=== PATIENT | female | born 1945 | race Caucasian/White ===

== ENCOUNTER 2018-02-03 06:48 | Inpatient (IN) | payer MEDICARE, BC ==
--- NOTE | 2018-01-24 16:10 | HP ---
HISTORY AND PHYSICAL: DATE OF ADMISSION/SURGERY: 02/03/18 DATE OF OFFICE VISIT: 01/24/18 SURGEON: Madeline Rodney MD * (DICTATED BY CHRIS VIDALES) PROCEDURE: Left total hip arthroplasty. CHIEF COMPLAINT: Left hip pain. HISTORY OF PRESENT ILLNESS: Ms. 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 She has failed conservative treatment and elected to proceed with a left total hip arthroplasty. PAST MEDICAL HISTORY: Osteoporosis and giant cell arteritis. PAST SURGICAL HISTORY: Appendectomy and ovarian cyst removal. CURRENT MEDICATIONS: 1. Prednisone 9 mg daily. 2. Probiotic. 3. Calcium with vitamin D. 4. Calcium lactate. 5. Turmeric. 6. CBD oil 500 mg twice a day. ALLERGIES: No known drug allergies. FAMILY HISTORY: Cancer. SOCIAL HISTORY: She is a 72-year-old female. She lives with her . She does not smoke or use drugs. Uses alcohol rarely. REVIEW OF SYSTEMS: A complete 14-point review of systems was reviewed with the patient. It is all negative and noncontributory. She denies history of DVT, PE , hepatitis, HIV, or anesthesia problems. PHYSICAL EXAMINATION GENERAL: She is well developed, well nourished, in no acute distress. VITAL SIGNS: She stands 63 inches tall, weighs 155 pounds. Her blood pressure 118/68 and her heart rate is 70. HEENT: Normocephalic, atraumatic. NECK: Supple. No palpable lymph nodes. PULMONARY: The lungs are clear to auscultation bilaterally. CARDIO: Regular rate and rhythm. Strong S1, S2. ABDOMEN: Soft, nontender, nondistended. NEUROLOGICAL: She is alert and oriented x3. MUSCULOSKELETAL: Left lower extremity, the skin is intact. There are no open wounds or abrasions. She walks with an antalgic-type gait favoring the left hip. She has decreased internal and external rotation of the left hip. She has a 2+ dorsalis pedis pulse. Intact sensation. Her lower extremity muscle group strengths are intact at 5/5. ASSESSMENT AND PLAN: Ms. Quesada is a 72-year-old female with end-stage osteoarthritis of the left hip. She has failed conservative treatment and elected to proceed with a left total hip arthroplasty. The surgery is scheduled for 02/03/[address] Rodney discussed the risks and benefits of the surgery at today's visit and all of her questions were answered. She will follow up with Dr. Rodney 2 weeks after the surgery. CHRIS VIDALES [id number]/[facility] #: [id number] PUSHPA
[~2018-02-03 06:48] MED LIST: Buffered Lidocaine 0.9% SYRIN* 5 ML/SYR SYRINGE INTRADERM ONE; Dexamethasone IV* 4 MG/ML 1 ML (4 MG) IV SLOW PU ONE; Famotidine IV* 10 MG/ML 2 ML (20 mg) IV ONE
--- OUTSIDE RECORDS SUMMARY | 2018-02-03 06:51 | XMS REPORT | Continuity of Care Document ---
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 Payers Type Date Identification Numbers Payment Provider Subscriber Effective: Policy Number: [id number] Medicare Laura Quesada 2010 Group Name: [facility] [address] PayID: [id number] [place] [address] Effective: 2014 Policy Number: [id number] [facility] Commercial Luis Quesada Group Number: [id number] [address] [address] PayID: [id number] CARLOS ALBERTO [place] [address] Advance Directives Description No Information Available Problems Date Description Provider Status Onset: 07/10/2014 Lactose intolerance Indiana Kumar MD Active Family History Description No Information Available Social History Type Date Description Comments Sex Unknown 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 Cigarette Use Quit - Age 23 Tobacco Use Start: Unknown End: Unknown Patient is a former smoker Smoking Status Reviewed: 01/18/18 Patient is a former smoker Allergies, Adverse Reactions, Alerts Date Description Reaction Status Severity Comments 07/12/2014 Penicillin Active 12/09/2009 No Known Drug Allergy Inactive Medications Medication Date Status Form Strength Qnty SIG Indications Ordering Provider Vitamin D3 12/02 Active Capsules 2000Unit 1 by Jackson mouth Catrina every day MD Elsie Risedronate Sodium 11/29 Active Tablets 150mg 1tabs take 1 M81.0 Jackson tablet Catrina every MD Elsie month Prednisone 09/04 Active Tablets 10mg 30tab 1 qd M31.6 Jackson s Catrina Zimmerman MD Calcium Citrate 09/04 Active Tablets 950mg 1 po qd M81.0 Jackson Catrina Zimmerman MD Probiotic 07/10 Active Capsules 1 by José mouth Indiana every day MD Perlita Magnesium 07/10 Active Capsules 90cap 1 by José s mouth Indiana every day MD Perlita Sulfamethoxazole/Tri 09/04 Hx Tablets 800-160mg 14tab 1 by M31.6 Jackson methoprim s mouth 3x Catrina - a week MD Elsie 01/18 Vitamin D3 09/04 Hx Tablets 400Unit 2 po qd M81.0 Jackson Catrina Zimmerman MD 12/02 Pantoprazole Sodium 09/04 Hx Tablets 40mg 90tab [address] nathan nazario Catrina - every day MD Elsie 09/04 Physical Therapy 07/08 Hx patient M25.50 stone to Catrina - continue MD Elsie 09/04 pool use 3-5x weekly for relief of pain Methylprednisolone 06/22 Hx TBPK 4mg 1pak as dir M54.2 Jackson Catrina Zimmerman MD 07/08 Proair HFA 06/18 Hx Aerosol 108(90Bas 8.500 2 p four R06.02 Jackson e) gm times a Catrina - mcg/Act day as MD Elsie 07/08 needed- b mdi per Ach Prilosec OTC 06/11 Hx Tablets 20mg [address] mansi Fritz - every day MD Elsie 09/04 Ibuprofen 06/08 Hx Tablets 600mg 60tab take one M54.2 Jackson s tablet by Catrina - mansi Zimmerman MD 06/11 times daily as needed Cyclobenzaprine HCL 06/08 Hx Tablets 10mg 30tab take 1/2 M54.2 Jackson s to 1 Catrina - tablet MD Elsie 09/04 night at bedtime Sulfamethoxazole/Tri 07/12 Hx Tablets 800-160mg 10tab 1 tab by 595.0 steph Kumaroprim s mouth Indiana - twice a MD Perlita 06/08 day x days No Active 07/10 Hx Unknown Medications /2014 - 07/10 Multivitamin OTC 07/10 Hx Tab 1tabs 1 by José mouth Indiana - every day MD Perlita 09/04 Calcium 07/10 Hx Tablets 90tab 1 by José s mouth Indiana - every day MD Perlita 09/04 Prednisone 12/09 Hx Tablets 10mg 30tab 4tabs qam 782.1 Jackson s x 3 days Catrina - then 3 po Elsie, 07/10 qam x 3d /2014 then 2 po qam x 3d then 1 po qam x 3 d Alendronate Sodium Hx Tablets 70mg 1 by M81.0 Unknown /0000 mouth qwk - 11/29 Actemra Hx Solution 80mg/4ML M31.6 Unknown /0000 - 01/18 Immunizations CPT Code Status Date Vaccine Lot # [id number] Refused 11/29/2017 Influenza Vac, 3 Yrs & Older, Quadrivalent, [place] [id number] Refused 06/22/2016 Influenza Vac, 3 Yrs & Older, Quadrivalent, Split, [id number] Im Use Vital Signs Date Vital Result Comment 01/18/2018 2:55pm Weight 164.00 lb Heart Rate 76 /min BP Systolic 128 mmHg BP Diastolic 66 mmHg Height 63 inches 5'3" BMI (Body Mass Index) 29.0 kg/m2 11/29/2017 3:25pm Weight 159.00 lb Heart Rate 64 /min BP Systolic 120 mmHg BP Diastolic 66 mmHg Height 63 inches 5'3" BMI (Body Mass Index) 28.2 kg/m2 09/04/2016 11:51am Weight 129.00 lb Heart Rate 60 /min BP Systolic 128 mmHg BP Diastolic 64 mmHg Height 63 inches 5'3" BMI (Body Mass Index) 22.8 kg/m2 07/22/2016 3:15pm Weight 133.00 lb Heart Rate 83 /min BP Systolic 120 mmHg BP Diastolic 65 mmHg Height 63 inches 5'3" BMI (Body Mass Index) 23.6 kg/m2 07/08/2016 1:52pm Weight 136.38 lb Heart Rate 78 /min BP Systolic 101 mmHg BP Diastolic 64 mmHg Height 63 inches 5'3" BMI (Body Mass Index) 24.2 kg/m2 06/22/2016 11:19am Weight 138.00 lb Heart Rate 76 /min BP Systolic 98 mmHg BP Diastolic 60 mmHg Height 63 inches 5'3" BMI (Body Mass Index) 24.4 kg/m2 06/15/2016 3:34pm Weight 140.00 lb Heart Rate 76 /min BP Systolic 116 mmHg BP Diastolic 62 mmHg Height 63 inches 5'3" O2 Saturation Level with Exercise 98 % Walking 200 FT BMI (Body Mass Index) 24.8 kg/m2 06/08/2016 11:00am Weight 139.00 lb Heart Rate 76 /min BP Systolic 110 mmHg BP Diastolic 64 mmHg Height 63 inches 5'3" BMI (Body Mass Index) 24.6 kg/m2 08/02/2014 2:10pm Heart Rate 62 /min BP Systolic 114 mmHg BP Diastolic 63 mmHg 07/12/2014 2:02pm Heart Rate 60 /min BP Systolic 108 mmHg BP Diastolic 67 mmHg 07/10/2014 2:44pm Weight 144.00 lb Heart Rate 65 /min BP Systolic 122 mmHg BP Diastolic 72 mmHg Height 63 inches 5'3" BMI (Body Mass Index) 25.5 kg/m2 12/13/2009 11:09am Heart Rate 76 /min BP Systolic 104 mmHg BP Diastolic 60 mmHg 12/09/2009 1:40pm Body Temperature 96.8 F Weight 172.00 lb Heart Rate 72 /min BP Systolic 130 mmHg BP Diastolic 74 mmHg Results Test Date Facility Test Result H/L Range Note Laboratory test 12/01/2017 [facility] (medicare) Negative Negative finding Lipid 12/01/2017 [facility] Cholesterol 186 mg/dL 50-199 Triglycerides 112 mg/dL 30-200 HDL 73 mg/dL 35-85 1 Chol/ HDL Ratio 2.5 ratio Low 3.7-5.6 VLDL 22 mg/dL 2-29 LDL (Calc) 91 mg/dL 20-99 2 Laboratory test finding 12/01/2017 [facility] TSH 1.14 uIU/mL 0.35-4.94 Vitamin D 25 Hydroxy 28 ng/mL Low 30-100 3 Glucose 81 mg/dL 70-105 Basic (BMP) 09/04/2016 [facility] Sodium 142 mmol/L 135-146 4, 5 Potassium 4.8 mmol/L 3.5-5.2 Chloride# 102 mmol/L 97-110 6 Carbon Dioxide 30 mmol/L 24-34 Glucose 103 mg/dL 70-105 BUN 18 mg/dL 6-26 Creatinine 0.8 mg/dL 0.5-1.4 Calcium 9.2 mg/dL 8.5-10.2 Non Tg Egfr >60 >60 7 Tg Egfr >60 >60 8 Anion Gap 15 mmol/L 7-16 9 Lyme Disease By PCR - RL 07/08/2016 [facility] Lyme PCR Not Detected 10 Laboratory test finding 06/25/2016 [facility] (medicare) Negative Negative CBC With Auto Diff 06/22/2016 [facility] WBC 9.8 K/uL 4.1-11.0 RBC 3.93 M/uL Low 4.00-5.40 Hemoglobin 11.2 gm/dL Low 12.0-16.0 Hematocrit 35.0 % Low 36.0-47.0 MCV 88.9 fL 80.0-97.0 MCH 28.5 pg 27.0-32.0 MCHC 32.1 g/dL 32.0-36.0 RDW 12.9 % 11.5-14.5 PLT Count 403 K/ul High 140-400 Neutrophil 75.2 % High 35.0-75.0 Lymphocyte 10.0 % Low 16.0-52.0 Monocyte 11.3 % High 2.0-10.0 Eosinophil 1.9 % 0.0-5.0 Basophil 1.6 % 0.0-4.0 Abs Neutrophils 7.4 K/uL 2.1-8.0 Abs Lymphocytes 1.0 K/uL 0.8-5.5 Abs Monocytes 1.1 K/uL High 0.1-1.0 Abs Eosinophils 0.2 K/uL 0.0-0.5 Abs Basophils 0.2 K/uL 0.0-0.3 Comment Specimen prewarm <SEE NOTE> 11 Iron Panel 06/22/2016 [facility], Total 14 g/dL Low 50-170 Transferrin 184.0 mg/dL Low 203.0-362.0 Tibc (calc) 258 g/dL Low 261-478 % Iron Saturation 5.4 % Low 13.0-45.0 Laboratory test finding 06/22/2016 [facility] Esr 58 mm/hr High 0-20 CRP (C-Reactive) 12.21 mg/dL High 0.00-0.75 Lyme Igm/Igg AB 06/08/2016 [facility] Lyme Igm/Igg AB @ NEGATIVE (Neg) 12 -RL CBC With Auto 06/08/2016 [facility] WBC 8.9 Specimen pre 4.1-11.0 13 Diff <SEE NOTE> K/uL RBC 3.93 M/uL Low 4.00-5.40 Hemoglobin 11.9 gm/dL Low 12.0-16.0 Hematocrit 35.1 % Low 36.0-47.0 MCV 89.4 fL 80.0-97.0 MCH 30.2 pg 27.0-32.0 MCHC 33.8 g/dL 32.0-36.0 RDW 12.8 % 11.5-14.5 PLT Count 374 K/ul 140-400 Comprehensive Metabolic (CMP) 06/08/2016 [facility] Sodium 145 mmol/L 135- 146 14 Potassium 4.9 mmol/L 3.5-5.2 Chloride# 104 mmol/L 97-110 15 Carbon Dioxide 29 mmol/L 24-34 Glucose 92 mg/dL 70-105 BUN 12 mg/dL 6-26 Creatinine 0.7 mg/dL 0.5-1.4 Calcium 9.2 mg/dL 8.5-10.2 Total Protein 6.7 g/dL 6.0-8.0 Albumin 3.8 g/dL 3.6-4.9 Globulin 2.9 g/dL 2.0-3.5 A/G Ratio 1.3 Ratio 1.0-2.2 Total Bilirubin 0.4 mg/dL 0.1-1.3 Alkaline Phosphatase 95 U/L 24-140 Alt 13 U/L 3-42 Ast 20 U/L 8-42 Tg Egfr >60 >60 16 Non Tg Egfr >60 >60 17 Anion Gap 17 mmol/L High 7-16 18 Laboratory test finding 06/08/2016 [facility] Esr 45 mm/hr High 0-20 TSH 1.38 uIU/mL 0.35-4.94 Vit D,25 Hydroxy 45 ng/mL 31-100 Lipid 06/08/2016 [facility] Cholesterol 149 mg/dL 50-199 Triglycerides 44 mg/dL 30-200 HDL 61 mg/dL 35-85 19 Chol/ HDL Ratio 2.5 ratio Low 3.7-5.6 VLDL 9 mg/dL 2-29 LDL (Calc) 80 mg/dL 20-99 20 Laboratory test 06/08/2016 [facility] Hepatitis C Virus NONREACTIVE Nonreactive finding Antibody Rheumatoid Factor <10.0 IU/mL 0.0-10.0 CCP Antibody Igg Negative Negative Radha Screen With Reflex-FCMG 06/08/2016 [facility] Radha Screen NEGATIVE dsDNA IgG NEGATIVE Manual Differential 06/08/2016 [facility] Neutrophils 71 % 35-75 Band 1 % 0-11 Lymphocytes 16 % 16-52 Monocytes 9 % High 0-8 Eosinophils 3 % 0-5 Basophils 0 % 0-4 Platelet Estimate Normal Normal Abs Neutrophils# 6.3 K/ul 1.8-7.7 Abs Lymphocytes# 1.4 K/ul 1.2-4.8 Abs Monocytes# 0.8 K/ul 0.0-0.8 Abs Eosinophils# 0.3 K/ul 0.0-0.5 Abs Basophils# 0.0 K/ul 0.0-0.3 Abs BandCells# 0.1 K/ul 0.0-1.2 Iron Panel 06/08/2016 [facility] Iron, Total 22 g/dL Low 50-170 Transferrin 209.0 mg/dL 203.0-362.0 Tibc (calc) 293 g/dL 261-478 % Iron Saturation 7.5 % Low 13.0-45.0 Laboratory test finding 07/24/2014 [facility] Vit D,25 Hydroxy 30 ng/mL Low 31-100 Lipid 07/24/2014 [facility] Cholesterol 171 mg/dL 50-199 Triglycerides 57 mg/dL 30-200 HDL 67 mg/dL 35-85 21 Chol/ HDL Ratio 2.6 ratio Low 3.7-5.6 VLDL 11 mg/dL 2-29 LDL (Calc) 93 mg/dL 20-99 22 Laboratory test finding 07/24/2014 [facility] TSH 1.63 uIU/mL 0.35-4.94 Vitamin B12 287 pg/mL 180-914 Comprehensive Metabolic (CMP) 07/24/2014 [facility] Sodium 142 mmol/L 134- 142 Potassium 4.6 mmol/L 3.5-5.2 Chloride 105 mmol/L 97-109 Carbon Dioxide 31 mmol/L 24-34 Glucose 97 mg/dL 70-105 BUN 17 mg/dL 6-26 Creatinine 0.7 mg/dL 0.5-1.4 Calcium 9.2 mg/dL 8.5-10.2 Total Protein 6.7 g/dL 6.0-8.0 Albumin 4.4 g/dL 3.6-4.9 Globulin 2.3 g/dL 2.0-3.5 A/G Ratio 1.9 Ratio 1.0-2.2 Total Bilirubin 0.4 mg/dL 0.1-1.3 Alkaline Phosphatase 80 U/L 24-140 Alt 21 U/L 3-42 Ast 27 U/L 8-42 Anion Gap 11 mmol/L 6-14 Tg Egfr >60 >60 23 Non Tg Egfr >60 >60 24 CBC With Auto Diff 07/24/2014 [facility] WBC 3.9 K/uL Low 4.1-11.0 RBC 4.08 M/uL 4.00-5.40 Hemoglobin 14.5 gm/dL 12.0-16.0 Hematocrit 40.9 % 36.0-47.0 MCV 100.3 fL High 80.0-97.0 MCH 35.5 pg High 27.0-32.0 MCHC 35.4 g/dL 32.0-36.0 RDW 13.4 % 11.5-14.5 PLT Count 196 K/ul 140-400 Neutrophil 65.0 % 35.0-75.0 Lymphocyte 22.1 % 16.0-52.0 Monocyte 8.0 % 2.0-10.0 Eosinophil 4.4 % 0.0-5.0 Basophil 0.5 % 0.0-4.0 Abs Neutrophils 2.6 K/uL 2.1-8.0 Abs Lymphocytes 0.9 K/uL 0.8-5.5 Abmon 0.3 K/uL 0.1-1.0 Abs Eosinophils 0.2 K/uL 0.0-0.5 Abs Basophils 0.0 K/uL 0.0-0.3 [facility] Micro[facility] res 25 finding <SEE NOTE> CBC 07/13/2001 [facility] (Do not Use) WBC 4.4 K/ul 4.1-1 [facility] [address] [place], [place] [id number] [phone] RBC 3.96 M/ul Low 4.2-6.3 Hemoglobin 13.6 GM/dl 12.0-16.0 Hematocrit 37.8 % 37.0-51.0 MCV 95.5 FL 80-97 MCH 34.3 pg High 26.0-32.0 MCHC 35.9 g/dL 31.0-36.0 RDW 12.1 % 11.5-14.5 Platelet Count 207 K/ul 140-440 Neutrophils 60.2 % 50-70 Lymphocytes 24.9 % 20-44 Monocytes 9.8 % High 2-9 Eosinophil 4.5 % High 0-4 Basophil 0.6 % 0-2 Absolute Neutrophils 2.7 K/ul 2.05-7.63 Absolute Lymphocytes 1.1 K/ul 0.8-4.8 Absolute Monocytes 0.4 K/ul 0.1-1.0 Absolute Eosinophils 0.2 K/ul 0.1-0.5 Absolute Basophils 0.0 K/ul Low 0.1-0.3 Laboratory test 07/13/2001 [facility] (Do not Use) TSH 1.49 uIU/ml 0.50 -6.00 26 finding [facility] [place] [address] [phone] Basic (BMP) 07/13/2001 [facility] (Do not Use) Sodium 141 mmol/L 137- 145 [facility] [place] [place] [address] [phone] Potassium 4.8 mmol/L 3.6-5.0 Chloride 102 mmol/L 98-107 Carbon Dioxide 30 mmol/L 22-30 Glucose 88 mg/dL 65-105 BUN 19 mg/dL High 7-18 Creatinine, Serum 0.8 mg/dL 0.7-1.2 BUN/CR Ratio 24.1 Ratio High 12-20 Anion Gap 14 mmol/L 10-20 Calcium 9.1 mg/dL 8.7-10.5 Lipid Panel 07/13/2001 [facility] (Do not Use) Cholesterol 178 mg/dL 50 -199 [facility] [place] [address] [phone] Triglycerides 82 mg/dL 30-249 HDL Cholesterol 71 mg/dL 29-86 LDL(Calc) 91 mg/dL 20-129 Chol/HDL Ratio 2.53 27 VLDL Cholesterol 16 mg/dL 1 Per NCEP ATP III Guidelines: Results lower than 40 mg/dL are suggestive of increased risk for coronary artery disease. Results > or=to 60 mg/dL are considered a negative risk factor. 2 Per NCEP ATP III Guidelines: Normal Population <130 Patients with medical conditions: CHD/DM Optimal: <100 Borderline high: 130-159 High: 160-189 Very high: >189 3 Clinical Guidelines for recommended serum 25(OH)Vitamin D Deficient at less than 20 ng/mL Insufficient at 20 to <30 ng/mL Sufficient at 30-100 ng/mL Toxicity at greater than 100 ng/mL 4 This sample is drawn by:NB. 5 Updated reference range on new analyzer 6 Updated reference range on new analyzer 7 Concerning GFR Guidelines: Normal function or mild renal disease, if clinically at risk: >/=60 mL/min Moderately decreased: 30-59 Severely decreased: 15-29 Renal failure: <15 Glomerular Filtration Rate (GFR) is estimated based on the MDRD equation, which assumes a steady state for creatinine as recommended by the National Kidney Disease Education Program in conjunction with the National Institutes of Health and the National Kidney Foundation. Clinical conditions in which it may be necessary to measure GFR by using clearance methods include extremes of age and body size, severe malnutrition or obesity, diseases of skeletal muscle, paraplegia or quadriplegia, vegetarian diet, rapidly changing kidney function, and calculation of the dose of potentially toxic drugs that are excreted by the kidneys. 8 Concerning GFR Guidelines for Americans: Normal function or mild renal disease, if clinically at risk: >/=60 mL/min Moderately decreased: 30-59 Severely decreased: 15-29 Renal failure: <15 9 Updated reference range on new analyzer 10 Not Detected NOT DETECTED - A negative result does not rule out the presence of PCR inhibitors in the patient specimen or assay specific nucleic acid in concentrations below the level of detection by the assay. The CDC considers blood and urine samples to be suboptimal for the detection for Borrelia by PCR. Positive results do not necessarily represent active disease. INTERPRETIVE INFORMATION: Borrelia Species DNA Detection by PCR Test developed and characteristics determined by [email or web address]. See Compliance Statement B: [facility] Performed by [email or web address], [address] [place] [id number] [email or web address], Josiah Carey MD, Lab. Director Unless otherwise specified, testing performed by [facility] [place] [address] 11 Specimen prewarmed prior to testing due to a presumptive cold agglutinin. 12 A Negative serologic test for Lyme Disease indicates no serologic evidence of infection with B burgdorferi at the time this specimen was collected. A repeat specimen should be collected in 2 to 4 weeks if clinically indicated. Unless otherwise specified, testing performed by [facility] [place] [address] 13 8.9 Specimen prewarmed prior to testing due to a presumptive cold agglutinin. 14 Updated reference range on new analyzer 15 Updated reference range on new analyzer 16 Concerning GFR Guidelines for Americans: Normal function or mild renal disease, if clinically at risk: >/=60 mL/min Moderately decreased: 30-59 Severely decreased: 15-29 Renal failure: <15 17 Concerning GFR Guidelines: Normal function or mild renal disease, if clinically at risk: >/=60 mL/min Moderately decreased: 30-59 Severely decreased: 15-29 Renal failure: <15 Glomerular Filtration Rate (GFR) is estimated based on the MDRD equation, which assumes a steady state for creatinine as recommended by the National Kidney Disease Education Program in conjunction with the National Institutes of Health and the National Kidney Foundation. Clinical conditions in which it may be necessary to measure GFR by using clearance methods include extremes of age and body size, severe malnutrition or obesity, diseases of skeletal muscle, paraplegia or quadriplegia, vegetarian diet, rapidly changing kidney function, and calculation of the dose of potentially toxic drugs that are excreted by the kidneys. 18 Updated reference range on new analyzer 19 Per NCEP ATP III Guidelines: Results lower than 40 mg/dL are suggestive of increased risk for coronary artery disease. Results > or=to 60 mg/dL are considered a negative risk factor. 20 Per NCEP ATP III Guidelines: Normal Population <130 Patients with medical conditions: CHD/DM Optimal: <100 Borderline high: 130-159 High: 160-189 Very high: >189 21 Per NCEP ATP III Guidelines: Results lower than 40 mg/dL are suggestive of increased risk for coronary artery disease. Results > or=to 60 mg/dL are considered a negative risk factor. 22 Per NCEP ATP III Guidelines: Normal Population <130 Patients with medical conditions: CHD/DM Optimal: <100 Borderline high: 130-159 High: 160-189 Very high: >189 23 Concerning GFR Guidelines for Americans: Normal function or mild renal disease, if clinically at risk: >/=60 mL/min Moderately decreased: 30-59 Severely decreased: 15-29 Renal failure: <15 24 Concerning GFR Guidelines: Normal function or mild renal disease, if clinically at risk: >/=60 mL/min Moderately decreased: 30-59 Severely decreased: 15-29 Renal failure: <15 Glomerular Filtration Rate (GFR) is estimated based on the MDRD equation, which assumes a steady state for creatinine as recommended by the National Kidney Disease Education Program in conjunction with the National Institutes of Health and the National Kidney Foundation. Clinical conditions in which it may be necessary to measure GFR by using clearance methods include extremes of age and body size, severe malnutrition or obesity, diseases of skeletal muscle, paraplegia or quadriplegia, vegetarian diet, rapidly changing kidney function, and calculation of the dose of potentially toxic drugs that are excreted by the kidneys. 25 Microbiology results SOURCE URINE FINAL RESULT No growth 26 New Method as of 07/14/01 using Third Generation TSH methodolgy 27 Normal Range: Male: <4.98 Female: <4.45 Procedures Date Code Description Status 01/18/2018 61366 Electrocardiogram Complete Completed 08/31/2016 [id number] Bone Mineral Density Test Completed 06/22/2016 22584 Spirometry /PFT W/O Bronchodialator Completed 06/15/2016 12891 Measure Blood Oxygen Level Single Determination Completed 06/15/2016 60942 Electrocardiogram Complete Completed 07/13/2001 58582 Electrocardiogram Complete Completed Encounters Type Date Location Provider Dx Diagnosis Office Visit 11/29/2017 Catrina Mcallister Z00.01 Encounter for 3:15p MD Elsie general adult medical exam w abnormal findings R63.5 Abnormal weight gain M31.6 Other giant cell arteritis M16.12 Unilateral primary osteoarthritis, LEFT hip M81.0 Age-related osteoporosis w/o current pathological fracture Z12.31 Encntr screen mammogram for malignant neoplasm of breast Z12.11 Encounter for screening for malignant neoplasm of colon Z13.89 Encounter for screening for other disorder Z91.19 Patient's noncompliance w oth medical treatment and regimen N63.11 Unspecified lump in the RIGHT breast, upper outer quadrant Z68.28 Body mass index (BMI) 28.0-28.9, adult Office Visit 09/04/2016 11:30a Catirna Mcallister M31.6 Other danuta Zimmerman MD arteritis M81.0 Age-related osteoporosis w/o current pathological fracture H53.121 Transient visual loss, RIGHT eye S82.61xA Disp fx of lateral malleolus of RIGHT fibula, init D23.61 Oth benign neoplasm skin/ RIGHT upper limb, inc shoulder Office Visit 07/22/2016 3:20p Ebony Pineda PA H53.121 Transient visual loss, RIGHT eye R68.84 Jaw pain Office Visit 07/08/2016 1:40p Ebony Pineda PA Z00.00 Encntr for general adult medical exam w/o abnormal findings M25.50 Pain in unspecified joint D50.9 Iron deficiency anemia, unspecified R70.0 Elevated erythrocyte sedimentation rate R06.02 Shortness of breath Z91.19 Patient's noncompliance w oth medical treatment and regimen Office Visit 06/15/2016 3:30p Catrina Mcallister D50.9 Iron deficiency MD Elsie anemia, unspecified M25.50 Pain in unspecified joint M54.2 Cervicalgia R06.02 Shortness of breath M54.5 Low back pain Office Visit 06/08/2016 11:00a Ctarina Mcallister MD M25.552 Pain in LEFT hip Z11.59 Encounter for screening for other viral diseases M25.50 Pain in unspecified joint E78.2 Mixed hyperlipidemia R53.83 Other fatigue E55.9 Vitamin D deficiency, unspecified M54.2 Cervicalgia D64.9 Anemia, unspecified Z72.89 Other problems related to lifestyle Office Visit 08/02/2014 2:20p Indiana Shaikh MD 214.9 Lipoma Unspecified Site Office Visit 07/12/2014 1:20p Indiana Shaikh MD 595.0 Cystitis Acute Office Visit 07/10/2014 2:20p Indiana Shaikh MD 595.0 Cystitis Acute V70.0 Exam (Adult) General Medical Routine AT Health Care Facility 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 709.9 Skin & Subcutaneous Tissue Disorders Unspec Office Visit 12/13/2009 10:00a Catrina Mcallister 782.1 Rash & Other Nonspec MD Elsie Skin Eruption Office Visit 12/09/2009 1:30p Catrina Mcallister 782.1 Rash & Other Nonspec MD Elsie Skin Eruption Office Visit 07/13/2001 8:20a Sri Dobbs, 627.2 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
--- OUTSIDE RECORDS SUMMARY | 2018-02-03 06:51 | XMS REPORT | Continuity of Care Document ---
:1945 External Reference #:[id number] Author Name Naida Carty Care Team Providers Name Role Phone Catrina Paz MD Care Team Information Conciliator Unavailable Payers Type Date Identification Numbers Payment Provider Subscriber Effective: Policy Number: [id number] Medicare Laura Quesada 2010 Group Name: [facility] [address] PayID: [id number] [place] [address] Effective: 2014 Policy Number: [id number] [facility] [employer] Luis Quesada Group Number: [id number] [address] [address] PayID: [id number] CARLOS ALBERTO [place] [address] Advance Directives Description No Information Available Problems [...] 1tabs take 1 M81.0 Jackson tablet Catrina cory Zimmerman MD month Prednisone 09/04 Active Tablets 10mg 30tab 1 qd M31.6 Jackson s Catrina Zimmerman MD Calcium Citrate 09/04 Active Tablets 950mg 1 po qd M81.0 Catrina Zimmerman MD Probiotic 07/10 Active Capsules 1 by mouth [place] every day MD Perlita Magnesium 07/10 Active Capsules 90cap 1 by José s mouth [place] every day MD Perlita Sulfamethoxazole/Tri 09/04 Hx Tablets 800-160mg 14tab 1 by M31.6 al Paz s mouth 3x Catrina - a week MD Elsie 01/18 Vitamin D3 09/04 Hx Tablets 400Unit 2 po qd M81.0 Jackson Catrina - MD Elsie 12/02 Pantoprazole Sodium 09/04 Hx Tablets 40mg 90tab [address] nathan Paulinoher - every day MD Elsie 09/04 Physical Therapy 07/08 Hx patient M25.50 Jackson to Catrina - continue MD Elsie 09/04 [...] Tablets 800-160mg 10tab 1 tab by 595.0 al Kumar s mouth [place] - twice a MD Perlita 06/08 day x days No Active 07/10 Hx Unknown Medications /2014 - 07/10 Multivitamin OTC 07/10 Hx Tab 1tabs 1 by José mouth [place] - every day MD Perlita 09/04 Calcium 07/10 Hx Tablets 90tab 1 by José, s mouth [place] - every day MD Perlita 09/04 Prednisone 12/09 Hx Tablets 10mg 30tab 4tabs qam 782.1 Jackson, s x 3 days Catrina - then 3 po MD Elsie 07/10 qam x 3d /2014 then 2 po qam x 3d then 1 po qam x 3 d Alendronate Sodium Hx Tablets 70mg 1 by M81.0 Unknown /0000 mouth qwk - 11/29 Actemra Hx Solution 80mg/4ML M31.6 Unknown /0000 - 01/18 Immunizations CPT Code Status Date Vaccine Lot # [id number] Refused 11/29/2017 Influenza Vac, 3 Yrs & Older, Quadrivalent, Split, [place] Use [id number] Refused 06/22/2016 Influenza Vac, 3 Yrs & Older, Quadrivalent, Split, [id number] Im Use Vital Signs Date Vital Result [...] Result H/L Range Note Laboratory test 12/01/2017 [facility] (medicare) Negative Negative finding Lipid 12/01/2017 [facility] Cholesterol 186 mg/dL 50-199 Triglycerides 112 mg/dL 30-200 HDL 73 mg/dL 35-85 1 Chol/ HDL Ratio 2.5 ratio Low 3.7-5.6 VLDL 22 mg/dL 2-29 LDL (Calc) 91 mg/dL 20-99 2 Laboratory test finding 12/01/2017 [facility] TSH 1.14 uIU/mL 0.35-4.94 Vitamin D 25 Hydroxy 28 ng/mL Low 30-100 3 Glucose 81 mg/dL 70-105 Basic (BMP) 09/04/2016 [facility] Sodium 142 mmol/L 135-146 4, 5 Potassium [...] prewarm <SEE NOTE> 11 Iron Panel 06/22/2016 [facility] Iron, Total 14 g/dL Low 50-170 Transferrin 184.0 mg/dL Low 203.0-362.0 Tibc (calc) 258 g/dL Low 261-478 % Iron Saturation 5.4 % Low 13.0-45.0 Laboratory test finding 06/22/2016 [facility] Esr 58 mm/hr High 0-20 CRP (C-Reactive) [...] BandCells# 0.1 K/ul 0.0-1.2 Iron Panel 06/08/2016 [facility] Iron, Total 22 g/dL Low 50-170 Transferrin [...] Basophils 0.0 K/uL 0.0-0.3 Laboratory test 07/10/2014 [facility] Urine Culture Microbiology res 25 finding <SEE NOTE> CBC 07/13/2001 [facility] (Do not Use) WBC 4.4 K/ul 4.1-1 [facility] [address] [place], [place] [id number] [phone] RBC 3.96 M/ul Low 4.2-6.3 Hemoglobin 13.6 [...] TSH 1.49 uIU/ml 0.50 -6.00 26 finding [facility] [place] [address] [phone] Basic (BMP) 07/13/2001 [facility] (Do not Use) Sodium 141 mmol/L 137- 145 [facility] [place] [address] [phone] Potassium 4.8 mmol/L 3.6-5.0 Chloride 102 mmol/L 98-107 Carbon Dioxide 30 mmol/L 22-30 Glucose 88 mg/dL 65-105 BUN 19 mg/dL High 7-18 Creatinine, Serum 0.8 mg/dL 0.7-1.2 BUN/CR Ratio 24.1 Ratio High 12-20 Anion Gap 14 mmol/L 10-20 Calcium 9.1 mg/dL 8.7-10.5 Lipid Panel 07/13/2001 [facility] (Do not Use) Cholesterol 178 mg/dL 50 -199 [facility] [place] [address] [phone] Triglycerides 82 mg/dL 30-249 HDL Cholesterol 71 [...] PCR Test developed and characteristics determined by [facility]. See Compliance Statement B: [employer] Performed by [facility], [address] [place] [id number] www.[employer] Josiah Carey MD, Lab. Director Unless otherwise specified, testing performed by [facility] [place] [address] 11 Specimen prewarmed prior to testing due to a presumptive cold agglutinin. 12 A Negative serologic test for Lyme Disease indicates no serologic evidence of infection with B burgdorferi at the time this specimen was collected. A repeat specimen should be collected in 2 to 4 weeks if clinically indicated. Unless otherwise specified, testing performed by [facility] [place] [address] 13 8.9 Specimen prewarmed prior to testing [...] <4.45 Procedures Date Code Description Status 01/18/2018 58941 Electrocardiogram Complete Completed 08/31/2016 155895299 Bone Mineral Density Test Completed 06/22/2016 10391 Spirometry /PFT W/O Bronchodialator Completed 06/15/2016 15586 Measure Blood Oxygen Level Single Determination Completed 06/15/2016 19903 Electrocardiogram Complete Completed 07/13/2001 85446 Electrocardiogram Complete Completed Encounters Type Date Location [...] (BMI) 28.0-28.9, adult Office Visit 09/04/2016 11:30a Catrina Mcallister 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 Plan of Treatment Future Appointment(s):05/30/2018 8:30 am - Catrina Paz MD at [facility]/18 - Catrina Paz MDZ01.818 Encounter for other preprocedural ltdwavwriasI00.12 Unilateral primary osteoarthritis, LEFT hipM31.6 Other giant cell yshulfumaB13.0 Age-related osteoporosis without current pathological vngnmrW32.11 Unspecified lump in the RIGHT breast, upper outer kejsdnryV02.19 Patient's noncompliance with other medical treatment and regZ79.52 senior living ( current) use of systemic rzxjhachB30.29 Body mass index (BMI) 29.0-29.9, adultAllComments:> 45 MIN SPENT IN FACE TO FACE TIME > 50% OF WHICH WAS ON 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
--- OUTSIDE RECORDS SUMMARY | 2018-02-03 06:51 | XMS REPORT | Continuity of Care Document ---
:1945 External Reference #:[id number] Author Name Christianyamileth Mian Care Team Providers Name Role Phone Catrina Paz MD Primary Care Physician Unavailable Payers Type Date Identification Numbers Payment Provider Subscriber Policy Number: [id number] Medicare Laura Quesada PayID: [id number] [address] [place] [address] Policy Number: [id number] [facility] Luis Quesada PayID: [id number] [address] [address] [place] [address] Advance Directives Description No Information Available Problems Date Description Provider Status Onset: 12/10/2017 Localized, primary osteoarthritis of the Madeline Rodney M.D. Active pelvic region and thigh Family History Date Family Member(s) Problem(s) Comments General Heart Disease mother General Cancer father Social History Type Date Description Comments Sex Unknown Lives With Spouse ETOH Use Occasionally consumes alcohol Tobacco Use Start: Unknown End: Patient is a former smoker quit 48 years ago Unknown Smoking Status Reviewed: 01/24/18 Patient is a former smoker quit 48 years ago Allergies, Adverse Reactions, Alerts Description No Known Drug Allergies Medications Medication Date Status Form Strength Qnty SIG Indications Ordering Provider Prednisone Active Tablets 5mg 1 by Unknown 000 mouth every day Probiotic 0 Active Capsules 1 by Unknown 000 mouth every day Calcium 500+D3 Active Tablets 500-400mg-U 1 tab by Unknown 000 nit mouth twice a day Alendronate Active Tablets 70mg take 1 Unknown Sodium 000 tablet by mouth every week Calcium 0 Active Unknown Lactate 000 Tumeric Forte 0 Active Unknown 000 CBD Oil Active 500mg one gtt Unknown 000 po bid Medications Administered in Office Medication Date Status Form Strength Qnty SIG Indications Ordering Provider Depomedrol Administered Injection Madeline 40MG Arturo Rodney M.D. Immunizations Description No Information Available Vital Signs Date Vital Result Comment 01/24/2018 10:02am Height 63 inches 5'3" Weight 155.00 lb Heart Rate 70 /min BP Systolic 118 mmHg BP Diastolic 68 mmHg Respiratory Rate 18 /min Body Temperature 98.0 F Pain Level 8 BMI (Body Mass Index) 27.5 kg/m2 12/27/2017 11:05am Height 63 inches 5'3" Weight 155.00 lb Heart Rate 68 /min BP Systolic 118 mmHg BP Diastolic 68 mmHg Body Temperature 97.6 F Pain Level 5 BMI (Body Mass Index) 27.5 kg/m2 12/10/2017 10:44am Height 63 inches 5'3" Weight 155.00 lb BP Systolic 107 mmHg BP Diastolic 63 mmHg Respiratory Rate 16 /min Pain Level 5 BMI (Body Mass Index) 27.5 kg/m2 09/01/2017 12:05pm Height 63 inches 5'3" Weight 154.50 lb Heart Rate 60 /min BP Systolic Sitting 122 mmHg BP Diastolic Sitting 78 mmHg Respiratory Rate 16 /min Body Temperature 97.0 F BMI (Body Mass Index) 27.4 kg/m2 Results Description No Information Available Procedures Date Code Description Status 12/10/2017 Inj/Aspir Major JT Or Bursa W/ US Completed Encounters Type Date Location Provider Dx Diagnosis Office Visit 12/27/2017 [facility] Madeline Rodney, M25.552 Pain in left hip 10:30a [facility] M16.12 Unilateral primary osteoarthritis, left hip Office Visit 12/10/2017 10:45a [facility] Madeline Rodney M25.552 Pain in left Of Diana.Jimmy Chatterjee hip M16.12 Unilateral primary osteoarthritis, left hip Office Visit 09/01/2017 11:45a [facility] Madeline Rodney M25.552 Pain in left Of C.M.Heather RiveraDBuddy hip M16.12 Unilateral primary osteoarthritis, left hip Plan of Treatment Future Appointment(s):02/09/2018 2:15 pm - Madeline Rodney M.D. at [facility]02/03/2018 11:30 am - Wm Murguia PA-C at [facility].02/03/2018 11:30 am - CHRIS Mercado at [facility].02/03/2018 11:30 am - Madeline Rodney M.D. at [facility]01/24/2018 - Madeline Rodney M.D.M25.552 Pain in left hipFollow up:Follow up: 2 weeks after aimckztA18.12 Unilateral primary osteoarthritis, left hip
[2018-02-03] MEDS ORDERED: Dexamethasone IV* 4 MG/ML 1 ML (4 MG) ONE (07:08)
[2018-02-03] MEDS ORDERED: ceFAZolin 2 GM PREMIX in ORs 2 GM/50 ML BAG IVPB ONE (07:08)
[2018-02-03] MEDS ORDERED: Famotidine IV* 10 MG/ML 2 ML (20 mg) ONE (07:08)
[2018-02-03] MEDS ORDERED: Bupivacaine 0.5% PF 10 ML VIAL INJ ONE (07:38)
[2018-02-03] MEDS ORDERED: Clindamycin 900 MG/D5W BAG(*) 900 MG/50 ML BAG IVPB ONE (08:05)
[2018-02-03] MEDS ORDERED: fentaNYL* 50 MCG/ML 2 ML VIAL (100 MCG VIAL) ONE ×2 (08:27→12:49)
[2018-02-03] MEDS ORDERED: Midazolam* 1 MG/ML 2 ML VIAL (2 MG) ONE (08:28)
[2018-02-03] MEDS ORDERED: Propofol* 10 MG/ML 20 ML BTL ONE (10:25)
[2018-02-03] MEDS ORDERED: Bupivacaine-MPF SPINAL* 7.5 MG/ML - 2ML AMP ONE (10:25)
[2018-02-03] MEDS ORDERED: Lidocaine 2% PF * 5 ML VIAL ONE (10:26)
[2018-02-03] MEDS ORDERED: Ketorolac INJ* 30 MG/ML 1 ML VIAL IV PRN (10:29)
[2018-02-03] MEDS ORDERED: Morphine VIAL* 4 MG/ML VIAL (1 ml vial) IV PRN ×2 (10:29→12:00)
[2018-02-03] MEDS ORDERED: oxyCODONE TAB* 5 MG TAB PO PRN (10:29)
[2018-02-03] MEDS ORDERED: Acetaminophen IV 1GM/100ML * 1,000 MG/100 ML VIAL IVPB ONE (10:29)
[2018-02-03] MEDS ORDERED: Ondansetron INJ* 2 MG/ML VIAL IV PRN ×2 (10:29→12:00)
[2018-02-03] MEDS ORDERED: Naloxone* 0.4 MG/ML 1 ML VIAL IV PRN (10:29)
[2018-02-03] MEDS ORDERED: fentaNYL* 50 MCG/ML 2 ML VIAL (100 MCG VIAL) IV PRN (10:29)
[2018-02-03] MEDS ORDERED: Phenylephrine INJ* 10 MG/ML 1 ML VIAL (10 MG) ONE (10:36)
[2018-02-03] MEDS ORDERED: EPHEDrine (Pressors)* 50 MG/ML VIAL ONE (11:32)
[2018-02-03] MEDS ORDERED: Polyethylene Glycol 3350* 17 GM PACKET PO PRN (12:00)
[2018-02-03] MEDS ORDERED: Bisacodyl SUPP* 10 MG SUPP PR PRN (12:00)
[2018-02-03] MEDS ORDERED: Cyclobenzaprine TAB* 10 MG PO PRN (12:00)
[2018-02-03] MEDS ORDERED: diPHENhydraMINE IV* 50 MG/ML 1 ml VIAL (BENADRYL) IV PRN (12:00)
[2018-02-03] MEDS ORDERED: oxyCODONE/Acetamin 5/325 MG* TAB PO PRN ×2 (12:00)
[2018-02-03] MEDS ORDERED: Magnesium Hydroxide LIQ* 30 ML UDC PO PRN (12:00)
[2018-02-03] MEDS ORDERED: Ketorolac INJ* 30 MG/ML 1 ML VIAL ONE (12:44)
[2018-02-03] MEDS: Acetaminophen TAB* 325 MG PO PRN ×2 (15:43→21:57)
[2018-02-03] MEDS: ceFAZolin 1 GM ADVAN(*) 1 GM in NS 0.9% 50 ML* 50 ML IVPB SCH ×2 (15:53→23:57)
--- NOTE | 2018-02-03 16:47 | PN ---
Progress Note - Progress Note Date of Service: 02/03/18 SOAP: Pt is stating pain is well controlled. She was up with PT and felt a dizzy spell earlier. +df/pf, calf is soft and non tender. 2+ DP pulse Vital Signs Temp 97.6 F 02/03/18 15:45 Pulse 76 02/03/18 15:45 Resp 17 02/03/18 15:45 BP 100/49 02/03/18 15:45 Pulse Ox 99 02/03/18 16:00 Intake & Output 02/02/18 02/03/18 02/03/18 18:59 06:59 18:59 Intake Total 2415 Output Total 800 Balance 1615 Weight 154 lb 12.8 oz Intake: IV Fluids 2000 LR 2000 Medicated IV 55 Cefazolin 55 Oral 360 Output: Fuentes 200 Estimated Blood Loss 600 Pt will have a bolus of LR today to help with soft blood pressure. Will continue to monitor.
[2018-02-03] MEDS ORDERED: Warfarin TAB(*) 6 MG PO ONE (17:00)
[2018-02-03] MEDS: Docusate CAP* 100 MG PO SCH (20:58)
[2018-02-03] MEDS: Magnesium Hydroxide LIQ* 30 ML UDC PO SCH (20:59)
[2018-02-04] MEDS: oxyCODONE TAB* 5 MG TAB PO PRN ×2 (01:08→08:36)
[2018-02-04 05:34] LABS: Hematocrit 29 % (35-47); Hemoglobin 9.5 g/dl (12.0-16.0); Mean Platelet Volume 7.9 fL (7.4-10.4); Platelet Count 275 10^3/ul (150-450)
[2018-02-04 05:39] LABS: INR 1.01 (0.77-1.02)
[2018-02-04 05:53] LABS: EGFR Non-African American 96.4 (>60)
--- NOTE | 2018-02-04 07:02 | PN ---
Progress Note - Progress Note Date of Service: 02/04/18 SOAP: Subjective: Pt. is alert, nad. Some dizziness with standing yesterday. Objective: Vital Signs: Temp Pulse Resp BP Pulse Ox 98.4 F 69 16 104/51 96 02/04/18 04:31 02/04/18 04:31 02/04/18 06:30 02/04/18 04:31 02/04/18 04:31 Laboratory Results - last 24 hr 02/04/18 02/04/18 02/04/18 05:01 05:01 05:01 Hgb 9.5 L Hct 29 L Plt Count 275 MPV 7.9 INR (Anticoag Therapy) 1.01 Sodium 140 Potassium 3.8 Chloride 107 Carbon Dioxide 28 Anion Gap 5 BUN 12 Creatinine 0.61 Est GFR ( Amer) 116.7 Est GFR (Non-Af Amer) 96.4 BUN/Creatinine Ratio 19.7 Glucose 93 Calcium 8.3 L LLE - dressing c/d/i. thigh soft, distal +df/pf, full sens lt, 2+ dp pulse. Assessment: 72 yo F pod 1 s/p LTHA Plan: wbat lle with post hip precautions pt/ot will restart home dose of 7mg prednisone daily plan lovenox x 30 days for dvt proph
[2018-02-04] MEDS ORDERED: predniSONE TAB* 5 MG ONE (07:50)
[2018-02-04] MEDS ORDERED: predniSONE TAB* 1 MG ONE (07:50)
[2018-02-04] MEDS: ceFAZolin 1 GM ADVAN(*) 1 GM in NS 0.9% 50 ML* 50 ML IVPB SCH (07:51)
[2018-02-04] MEDS: predniSONE TAB* 5 MG PO SCH (07:53)
[2018-02-04] MEDS: predniSONE TAB* 1 MG PO SCH (07:53)
[2018-02-04] MEDS: Magnesium Hydroxide LIQ* 30 ML UDC PO SCH ×2 (07:54→21:01)
[2018-02-04] MEDS: Vitamin THERAPEUTIC TAB PO SCH (07:59)
[2018-02-04] MEDS: Docusate CAP* 100 MG PO SCH ×2 (07:59→20:56)
[2018-02-04] MEDS: Enoxaparin(*) 40 MG/0.4 ML SYR SUBCUT SCH (12:53)
[2018-02-04] MEDS ORDERED: HYDROcodone/ACETAMIN 5-325 MG* 1 TAB PO PRN ×2 (13:39→13:40)
--- NOTE | 2018-02-04 14:34 | OP ---
OPERATIVE NOTE: DATE OF OPERATION: 02/03/18 DATE OF : 45 SURGEON: Madeline Rodney MD PRODUCT MGR: CHRIS Cobb Mr. Murguia did help throughout the procedure with preparation of the leg, wound retraction, manipulat ion of the hip, and wound closure. ANESTHESIOLOGIST: Devon Mcguire MD ANESTHESIA: Spinal. PRE-OP DIAGNOSIS: Severe end-stage degenerative osteoarthritis of the left hip joint with subchondra l cyst formation in the acetabulum. POST-OP DIAGNOSIS: Severe end-stage degenerative osteoarthritis of the left hip joint with subchondr al cyst formation in the acetabulum. OPERATIVE PROCEDURE: Left total hip arthroplasty with acetabular subchondral cyst bone graft using f emoral head allograft. ESTIMATED BLOOD LOSS: 200 cc. COMPLICATIONS: None. SPECIMEN: Femoral head and acetabular reaming sent to Pathology. HARDWARE USED: Uncemented Phillip total hip arthroplasty hardware. For the cup, a Tritanium cluster hole shell 52D, two 20-mm screws were used, Trident X3 zero- degree 32D polyethylene liner, Accolade II size 6 with a 127-degree neck, Biolox delta ceramic V40 femoral head 32-4. BRIEF HISTORY/INDICATION: Ms. Quesada is a 72-year-old female with increasingly severe left hip lamberto n over the last 6 months. Radiographs showed [id number] arthritis with subchondral cyst formation. She failed conservative treatment with antiinflammatories, pain medication, intraarticular injectio n, and physical therapy. Due to continued pain and decreased quality of life, she elected to undergo a left total hip arthroplasty. Informed consent was obtained from the patient. She understood the risks of surgery included, but were not limited to, bleeding, infection, damage to nearby structures, continued pain, need for further surgery, intraoperative fracture, nerve palsy, hardware failure or loosening, dislocation, leg-length discrepancy, stroke, heart attack, blood clot, and . She wish ed to proceed. INTRAOPERATIVE FINDINGS: Intraoperatively, the patient was noted to have severe end-stage arthritis with complete loss of cartilage in the acetabulum and femoral head. There was significant osteopenia of the patient's bone. She was noted to have subchondral cyst in the anterosuperior weightbearing d ome of the acetabulum that was approximately 1 cm in diameter. DESCRIPTION OF PROCEDURE: Ms. Quesada was identified in the preanesthesia unit. Her left lower extr emity was marked as the correct operative side. Informed consent was signed and placed in the chart. The patient was taken to the operating room and placed under spinal anesthesia. A Fuentes catheter w as placed. She was placed in the right lateral decubitus position on the peg board. All bony promin ences were well padded. Left lower extremity was prepped and draped in the usual sterile fashion. P reop time-out was made to correctly identify the patient, side, and site. Appropriate perioperative antibiotics were given within 1 hour of incision. A posterior hip incision was made and carried down to the lateral fascial layer. The lateral fascial layer was incised in line with the skin incision. Charnley retractor was placed. The piriformis and conjoint tendons were identified off the posterolateral femur and tagged with #5 Ethibond. Next, el ectrocautery was used to make a standard posterolateral capsular flap and this was also tagged with # 5 Ethibond. The patient's hip was carefully dislocated. Lesser trochanter to center of femoral head measured 60 mm. Oscillating saw was used to make the appropriate femoral neck cut. The femoral hea d was carefully removed. Allograft was obtained from the femoral head to use for bone grafting of th e subchondral cyst that was seen on preop x-rays. After appropriate placement of retractors, the acetabulum was well visualized. Long-handle knife was used to sharply remove any remaining labrum from the acetabular rim. The acetabulum was sequentially reamed up to a size 51. The 51 reamer had excellent fit and stability. A 51 trial also had excelle nt fit and stability. A bleeding subchondral bone bed was obtained. Final implant chosen was a Trit anium cluster hole shell 52D. This was impacted into the acetabulum without complication. There was satisfactory abduction angle, anteversion, and stability. Two 20-mm screws were placed in the supero posterior quadrant for extra stability. A Trident X3 32D 0-degree liner was chosen as the final impla nt. This was impacted into the acetabulum without difficulty. Stability of the liner was checked an d rechecked and noted to be stable. Attention was next turned to preparation of the femoral canal. A canal finder was used to enter the proximal femur. The femur was sequentially broached up to a size 6. The size 6 broach had good fit with appropriate anteversion. A 127 neck trial with a 32+0 head t rial was chosen. Lesser trochanter to center of the femoral head measured 65 mm. Therefore, a -4 he ad was chosen. Lesser trochanter to center of the femoral head measured 61 mm. The hip was reduced and taken through a range of motion. The hip was stable in all positions. There was good soft tissu e tension and appropriate leg lengths. All trials were carefully removed. Final implant chosen was an Accolade II size 6 with a 127-degree neck. This was impacted into the femoral canal without difficulty. The stem was stable with appropr iate anteversion. A 32-4 Biolox delta ceramic V40 femoral head was impacted down to the femoral neck . Lesser trochanter to center of the femoral head measured 61 mm. The hip was reduced and taken thr ough a range of motion. The hip was stable in all positions. There was good soft tissue tension and appropriate leg lengths. The previously tagged tendons and capsule were reapproximated to the poste rolateral femur through 2 trochanteric drill holes. The wound was copiously irrigated with sterile saline. The lateral fascial layer was closed using in terrupted #1 Vicryl. The rest of the incision was closed in a layered fashion using 0 and 2-0 Vicryl . Skin was closed using running 3-0 Monocryl and Dermabond. Sterile Adaptic, 4x4s, and paper tape w ere used to cover the incision. The patient's anesthesia was reversed without difficulty. She was taken to the PACU in stable condit ion. Intended weightbearing will be weightbearing as tolerated with posterior hip precautions. Inte nded DVT prophylaxis will be Lovenox. [id number]/[facility] #: [id number]
[2018-02-04] MEDS: Acetaminophen TAB* 325 MG PO PRN ×2 (15:00→20:55)
[2018-02-04] MEDS ORDERED: traMADol TAB* 50 MG PO PRN (20:09)
[2018-02-05] MEDS: Acetaminophen TAB* 325 MG PO PRN ×3 (04:21→18:38)
[2018-02-05 06:01] LABS: Hematocrit 29 % (35-47); Hemoglobin 9.9 g/dl (12.0-16.0); Platelet Count 283 10^3/ul (150-450)
[2018-02-05 06:16] LABS: INR 1.02 (0.77-1.02)
[2018-02-05] MEDS: predniSONE TAB* 1 MG PO SCH (08:26)
[2018-02-05] MEDS: predniSONE TAB* 5 MG PO SCH (08:27)
[2018-02-05] MEDS: Docusate CAP* 100 MG PO SCH ×2 (08:27→19:46)
[2018-02-05] MEDS: Vitamin THERAPEUTIC TAB PO SCH (08:28)
[2018-02-05] MEDS: Magnesium Hydroxide LIQ* 30 ML UDC PO SCH ×2 (08:29→19:46)
[2018-02-05] MEDS: Enoxaparin(*) 40 MG/0.4 ML SYR SUBCUT SCH (11:43)
[2018-02-05] MEDS ORDERED: Scopolamine 1.5 mg* PATCH TRANSDERM SCH (12:30)
--- NOTE | 2018-02-05 12:34 | PN ---
Progress Note - Progress Note Date of Service: 02/05/18 SOAP: Subjective: POD #2 Left JULIAN. Doing well. Did not tolerate Percocet or [place], switched to Tramadol. Ambulating well. Denies CP/SOB, f/c, n/v. Objective: Vital Signs: Temp Pulse Resp BP Pulse Ox 98.4 F 75 17 101/48 96 02/05/18 11:16 02/05/18 11:16 02/05/18 11:16 02/05/18 11:16 02/05/18 11:16 Gen: A&Ox3, NAD at rest Left hip: Incision C/D/I, mild ecchymosis, no erythema. +f/e at knee, ankle and MTPs. N/V intact Labs: Laboratory Results - last 24 hr 18 02/05/18 05:24 05:24 Hgb 9.9 L Hct 29 L Plt Count 283 MPV 8.0 INR (Anticoag Therapy) 1.02 Assessment: POD #2 Left JULIAN Plan: Probable d/c tomorrow if pain still controlled with medication change PT/OT with posterior hip precautions Lovenox for DVT ppx
[2018-02-05] MEDS ORDERED: Scopolamine 1.5 mg* PATCH ONE (12:35)
[2018-02-06] MEDS: Acetaminophen TAB* 325 MG PO PRN ×3 (00:37→13:19)
[2018-02-06 05:44] LABS: Hematocrit 29 % (35-47); Hemoglobin 9.7 g/dl (12.0-16.0); Mean Platelet Volume 7.9 fL (7.4-10.4); Platelet Count 289 10^3/ul (150-450)
[2018-02-06 05:47] LABS: INR 0.98 (0.77-1.02)
[2018-02-06 08:10] VITALS: BP 110/44
[2018-02-06] MEDS: Docusate CAP* 100 MG PO SCH (08:26)
[2018-02-06] MEDS: Magnesium Hydroxide LIQ* 30 ML UDC PO SCH (08:26)
[2018-02-06] MEDS: Vitamin THERAPEUTIC TAB PO SCH (08:26)
[2018-02-06] MEDS: predniSONE TAB* 5 MG PO SCH (08:26)
[2018-02-06] MEDS: predniSONE TAB* 1 MG PO SCH (08:26)
--- NOTE | 2018-02-06 08:34 | PN ---
Progress Note - Progress Note Date of Service: 02/06/18 SOAP: Subjective: POD #3 Left JULIAN. Doing well, had slight episode of nausea but resolved. Pain controlled. Denies CP/SOB, f/c Objective: Vitals: Temp Pulse Resp BP Pulse Ox 98.3 F 69 17 110/44 100 12//18 07:35 12//18 07:35 1218 07:35 02/06/18 07:35 02/06/18 07:35 Gen: A&Ox3, NAD at rest laying in bed Left hip: Dressing C/D/I, thigh soft, min tenderness. +f/e at ankle and MTPs, N/ V intact Labs: Laboratory Results - last 24 hr 12//18 //18 05:10 05:10 Hgb 9.7 L Hct 29 L Plt Count 289 MPV 7.9 INR (Anticoag Therapy) 0.98 Assessment: POD #3 Left JULIAN Plan: D/C home today Eliquis 2.5mg BID for DVT ppx Cont PT, posterior hip precautions F/U with Dr. Rodney 10-14 days
--- NOTE | 2018-02-06 10:47 | DS ---
DISCHARGE SUMMARY: DATE OF ADMISSION: 02/03/18. DATE OF DISCHARGE: 02/06/18. PROVIDER: Madeline Rodney M.D.* (DICTATED BY CHRIS COLLADO) ADMITTING DIAGNOSIS: Severe end-stage osteoarthritis of the left hip. DISCHARGE DIAGNOSIS: Severe end-stage osteoarthritis of the left hip, status post left total hip arthroplasty. SECONDARY DIAGNOSIS: Osteoporosis and giant cell arteritis. HISTORY OF PRESENT ILLNESS: Ms. Quesada is a 72-year-old female, who has had ongoing troubles with the left hip secondary to end-stage osteoarthritis. She elected to proceed with a left total hip arthroplasty after failing conservative treatment. HOSPITAL COURSE: On 02/03/18, the patient was admitted to [facility] and underwent a successful left total hip arthroplasty by Dr. Rodney. She recovered briefly in the postanesthesia care unit and was transferred to the short-stay surgical unit in stable condition. The patient's pain was well controlled with oral and IV pain medication on the day of surgery; however, she did have some dizziness and was given a bolus of saline to increase her blood pressure as she had slight hypotension at 100/49. On postop day 1, the patient was feeling slightly better, although did report quite a bit of nausea. Percocet was discontinued and the patient was switched to Glendo and did have some good pain relief. She still reported quite a bit of nausea. She had an acute blood loss anemia with an H and H of 9.5 and 29. She was given Lovenox at this time for DVT prophylaxis. Her Fuentes catheter was removed and she was able to void without difficulty. On postop day 2, the patient continued to have some dizziness and nausea. The Glendo was then switched to tramadol which the patient tolerated much better. She still reported some slight dizziness, however, that resolved dizziness with positional changes; however, that resolved with waiting. The patient was able to participate with physical therapy and was able to ambulate a significant distance with a rolling walker. H and H was stable at 9.9 and 29. She again received Lovenox for DVT prophylaxis. On postop day 3, the patient seemed more confident and ready for discharge. H and H was 9.7 and 29. She was able to participate with physical therapy again. Throughout her hospital course, the patient's vital signs remained stable. She had some slight hypotension, but was normotensive and afebrile at the time of discharge. DISCHARGE DISPOSITION: Home. DISCHARGE CONDITION: Stable. DISCHARGE MEDICATIONS: The patient will use: 1. Tramadol 50 mg one tab p.o. q.6 hours p.r.n. pain. 2. Tylenol 650 mg p.o. q.6 hours to alternate with the tramadol p.r.n. pain. 3. She will use Colace 100 mg p.o. b.i.d. p.r.n. constipation. 4. Eliquis 2.5 mg p.o. b.i.d. for DVT prophylaxis. The patient will resume her home medications of: 1. Prednisone 7 mg p.o. q.a.m. 2. Turmeric 150 mg p.o. t.i.d. 3. Lescol 1 tab p.o. t.i.d. 4. Probiotic supplement 1 tab p.o. q.a.m. 5. Enzocor 1 tab p.o. t.i.d. 6. Dramamine 2 tabs p.o. t.i.d. 7. CBD 500 mL p.o. b.i.d. 8. Cataplex D 800 units p.o. t.i.d. 9. Cataplex B 2 tabs p.o. t.i.d. 10. Calcium lactate 2 tabs p.o. t.i.d. 11. Boswellia penny extract 1 tab p.o. t.i.d. 12. Andrographis 2 tabs p.o. t.i.d. DISCHARGE INSTRUCTIONS: The patient will be weightbearing as tolerated with the use of the rolling walker. She will have [facility] for wound checks and home physical therapy. She will continue with her posterior hip precautions. She will shower normally and wash the incision with soap and water , and apply dry dressing as needed. She is understanding not to submerge the incision in a bathtub, hot tub or swimming pool. She will call the office with any problems or concerns. She is understanding to go directly to the emergency room with any chest pain, shortness of breath, fever greater than 101.5, calf pain or swelling. CHRIS COLLADO [id number]/[facility] #: [id number] PUSHPA
[2018-02-06] MEDS: Enoxaparin(*) 40 MG/0.4 ML SYR SUBCUT SCH (11:08)
== END 2018-02-06 13:58 | disposition home health service (06) | DRG 470 ==
LOC: AA 06:48 → SSU 14:18
PROVIDERS: ADMIT Orthopaedic Surgery Adult Reconstructive Orthopaedic Surgery; ATTEND Orthopaedic Surgery Adult Reconstructive Orthopaedic Surgery
PROC: 0QU507Z Supplement Left Acetabulum with Autologous Tissue Substitute, Open Approach (ICD-10-PCS; 2018-02-03)
PROC: 0SRB02A Replacement of Left Hip Joint with Metal on Polyethylene Synthetic Substitute, Uncemented, Open Approach (ICD-10-PCS; principal; 2018-02-03 09:00)
DX: M16.12 Unilateral primary osteoarthritis, left hip (principal); D62 Acute posthemorrhagic anemia; M31.6 Other giant cell arteritis; M81.0 Age-related osteoporosis without current pathological fracture; M85.48 Solitary bone cyst, other site; M85.862 Other specified disorders of bone density and structure, left lower leg; Z79.52 Long term (current) use of systemic steroids; Z79.899 Other long term (current) drug therapy; Z80.9 Family history of malignant neoplasm, unspecified
CPT/HCPCS: 36415; 80048; 85014; 85018; 85049; 85610; 88304; 88311; A9270-GY; G8978-GP-CL; G8978-GP-CM; G8979-GP-CI; G8987-GO-CJ; G8988-GO-CJ; G8989-GO-CJ; J0690; J1100; J1650; J1885; J2250; J2405; J2704; J3010; J7512

== ENCOUNTER 2018-11-29 10:27 | Inpatient (IN) | payer MEDICARE, BC ==
--- NOTE | 2018-11-21 18:16 | HP ---
PREOPERATIVE HISTORY AND PHYSICAL: DATE OF ADMISSION/SURGERY: 11/29/18 DATE OF OFFICE VISIT: 11/21/18 ATTENDING PHYSICIAN: Dr. Madeline Rodney.* (DICTATED BY CHRIS BARBOSA) SURGERY SCHEDULED: Right total knee arthroplasty. CHIEF COMPLAINT: Right knee pain. HISTORY OF PRESENT ILLNESS: Ms. Quesada is a 72-year-old female with right knee pain and feelings of instability with valgus deformity. She has sharp pain along the medial and lateral joint line of the right knee. She uses a cane to ambulate. She has tried water therapy, physical therapy, anti- inflammatories, pain medication, and intraarticular cortisone injection without relief of her pain. She would like to proceed with right total knee arthroplasty and is scheduled 11/29/18. PAST MEDICAL HISTORY: Significant for: 1. Osteoarthritis. 2. Giant cell arteritis. 3. Temporal arteritis. 4. History of anemia from NSAID use, which is now resolved. 7. Fractured left ankle, treated conservatively. PAST SURGICAL HISTORY: She has had left total hip arthroplasty and ovarian cyst excision. CURRENT MEDICATIONS: 1. Prednisone 7 mg p.o. daily. 2. Probiotic pill 1 daily. 3. Calcium tablet daily. 4. Vitamin D supplement daily. 5. Tylenol 650 mg in the a.m. and Tylenol PM q.h.s. ALLERGIES: No known drug allergies, but she is sensitive to narcotics which all cause dizziness and GI upset. FAMILY HISTORY: Mom with a history of congestive heart failure. Father with a history of lung cancer. SOCIAL HISTORY: She lives with her . She denies use of tobacco or recreational drugs. She minimally uses alcohol. REVIEW OF SYSTEMS: Positive for bilateral knee pain, right greater than left. History of easy bleeding and bruising. She denies recent recent loss of consciousness, lightheadedness, dizziness, shortness of breath, chest pain or palpitations, gastrointestinal or genitourinary discomfort. PHYSICAL EXAMINATION GENERAL: She is alert and oriented x3, in no acute distress. VITAL SIGNS: She is 64 inches tall, weight 157. Pulse 80, BP 138/72, temperature 97.6. HEENT: PERRLA. LUNGS: Clear to auscultation without wheeze. HEART: Regular rate and rhythm. No murmur. ABDOMEN: Nontender, nondistended. Normoactive bowel sounds x4. LOWER EXTREMITIES: The right knee shows no open lesions or excoriations. The motion is limited from 10 degrees to 110 degrees. She has a moderate to severe valgus deformity. There is some MCL laxity, but there is an end point with varus/valgus stress test. She has significant patellofemoral crepitus. She has active dorsiflexion of the ankle. She has full sensation and has a 2+ dorsalis pedis pulse. STUDIES: Plain films of the right knee show severe end-stage degenerative osteoarthritis with lateral [id number] contact, osteophyte formation, and subchondral sclerosis. IMPRESSION AND PLAN: Advanced osteoarthritis of the right knee with valgus deformity. She has failed conservative management and would like to proceed with right total knee arthroplasty scheduled for 11/29/18. Risks and benefits of the procedure are fully discussed by Dr. Rodney today 11/21/18. She elects to proceed. She will follow up in 10 to 14 days postoperatively. CHRIS BARBOSA [id number]/[facility] #: [id number] PUSHPA
[~2018-11-29 10:27] MED LIST changes: -Buffered Lidocaine 0.9% SYRIN* 5 ML/SYR SYRINGE INTRADERM ONE; +Buffered Lidocaine 1% SYRIN* 1 ML/SYRINGE INTRADERM ONE; +Gabapentin CAP(*) 300 MG PO ONE; +Lactated Ringers 1000 ML Bag* 1,000 ML IV SCH; +Tranexamic Acid 1,000 MG in NS 0.9% 50 ML* (outpatient use) IV SCH; +celeCOXIB CAP* 200 MG PO ONE
--- OUTSIDE RECORDS SUMMARY | 2018-11-29 10:33 | XMS REPORT | Continuity of Care Document ---
:1945 External Reference #:[id number] Author Name Catrina Paz MD Address [address] [place] [id number] Care Team Providers Name Role Phone Hannah Jones [place] Care Team Information [employer] Employee [phone] [facility] Radiology Care Team Information [employer] Employee Leida Cordon MD Care Team Information [employer] Employee [phone] Problems Active Problems Provider Date Giant cell arteritis Mor Glynn PA Onset: 04/26/2018 Lactose intolerance Indiana Kumar MD Onset: 07/10/2014 Social History Type Date Description Comments Sex Unknown Cigarette Use Quit - Age 23 Tobacco Use Start: Unknown End: Unknown Patient is a former smoker Smoking Status Reviewed: 10/10/18 Patient is a former smoker Allergies, Adverse Reactions, Alerts Active Allergies Reaction Severity Comments Date Penicillin 07/12/2014 Actemra rash 10/04/2018 Inactive Allergies No Known Drug Allergy 12/09/2009 Medications Active Medications SIG Qnty Indications Ordering Provider Date Sulfamethoxazole/Trim 1 by mouth twice 6tabs N39.0 Catrina Paz 2018 ethoprim DS a day MD Elsie 800-160mg Tablets Prednisone 3 qd M31.6 Catrina Paz 05/30/2018 1mg Tablets MD Elsie Vitamin D3 1 by mouth every E55.9 Catrina Paz 12/02/2017 2000Unit day MD Elsie Capsules Risedronate Sodium take 1 tablet 1tabs M81.0 Catrina Paz 11/29/2017 every month MD Elsie 150mg Tablets Calcium Citrate 1 po qd M81.0 Catrina Paz 09/04/2016 950mg MD Elsie Tablets Probiotic 1 by mouth every Indiana Kumar MD 07/10/2014 Capsules day Magnesium 1 by mouth every 90caps Indiana Kumar MD 07/10/2014 Capsules day Furosemide 1 by mouth every Unknown 20mg Tablets day prn Diclofenac Sodium apply 1 gram per Unknown 1% joint four times Gel a day as needed for pain History Medications Celecoxib 1 po qd june inc 30caps M17.11 Catrina Paz 05/30/2018 - 100mg to bid as alondra MD Elsie 06/03/2018 Capsules [facility] 1 by mouth 30caps D50.9 [facility] 05/30/2018 - 40mg every day MD Elsie 10/10/2018 Capsules Duleduardo HCL 1 by mouth 7caps M17.11 [facility] Catrina 05/30/2018 - 30mg every day x 1 MMD 07/08/[address] Pandey week Duloxetine HCL 1 by mouth 30caps M17.11 [facility] Catrina 05/30/2018 - 60mg every day MD Elsie 07/08/[address] Pandey Immunizations CPT Code Status Date Vaccine Lot # [id number] Refused 11/29/2017 Influenza Vac, Quadrivalent, Split, 0.5mL Dosage, Im Use [id number] Refused 06/22/2016 Influenza Vac, Quadrivalent, Split, 0.5mL Dosage, Im [id number] Use Vital Signs Date Vital Result Comment 10/10/2018 1:59pm Weight 153.00 lb Heart Rate 84 /min BP Systolic 112 mmHg BP Diastolic 56 mmHg Height 63 inches 5'3" BMI (Body Mass Index) 27.1 kg/m2 07/08/2018 11:51am Weight 153.00 lb Heart Rate 76 /min BP Systolic 120 mmHg BP Diastolic 68 mmHg Height 63 inches 5'3" BMI (Body Mass Index) 27.1 kg/m2 Results Test Date Facility Test Result H/L Range Note Laboratory test 10/10/2018 [facility] Urine Culture <pending> finding CBC with Auto 07/08/2018 [facility] WBC 9.8 K/uL 4.1-11.0 Diff-fcmg RBC 4.77 M/uL 4.00-5.40 Hemoglobin 13.4 gm/dL 12.0-16.0 Hematocrit 41.3 % 36.0-47.0 MCV 86.6 fL 80.0-97.0 MCH 28.1 pg 27.0-32.0 MCHC 32.5 g/dL 32.0-36.0 RDW 17.6 % High 11.5-14.5 PLT Count 379 K/ul 140-400 MPV 8.3 FL 7.1-10.7 Neutrophil 83.9 % High 35.0-75.0 Lymphocyte 11.0 % Low 16.0-52.0 Monocyte 4.8 % 2.0-10.0 Eosinophil 0.0 % 0.0-5.0 Basophil 0.3 % 0.0-4.0 Abs Neutrophils 8.2 K/uL High 2.1-8.0 Abs Lymphocytes 1.1 K/uL 0.8-5.5 Abs Monocytes 0.5 K/uL 0.1-1.0 Abs Eosinophils 0.0 K/uL 0.0-0.5 Abs Basophils 0.0 K/uL 0.0-0.3 Iron Panel 07/08/2018 [facility], Total 53 g/dL 50-170 Transferrin 286.0 mg/dL 203.0-362.0 Tibc (calc) 400 g/dL 261-478 % Iron Saturation 13.2 % 13.0-45.0 CBC with Auto Diff-fcmg 05/30/2018 [facility] WBC 9.7 K/uL 4.1-11.0 1 RBC 3.60 M/uL Low 4.00-5.40 Hemoglobin 11.7 gm/dL Low 12.0-16.0 Hematocrit 33.1 % Low 36.0-47.0 MCV 92.1 fL 80.0-97.0 MCH 32.5 pg High 27.0-32.0 MCHC 35.3 g/dL 32.0-36.0 RDW 14.7 % High 11.5-14.5 PLT Count 487 K/ul High 140-400 MPV 8.3 FL 7.1-10.7 Neutrophil 83.8 % High 35.0-75.0 Lymphocyte 5.3 % Low 16.0-52.0 Monocyte 10.1 % High 2.0-10.0 Eosinophil 0.6 % 0.0-5.0 Basophil 0.2 % 0.0-4.0 Abs Neutrophils 8.1 K/uL High 2.1-8.0 Abs Lymphocytes 0.5 K/uL Low 0.8-5.5 Abs Monocytes 1.0 K/uL 0.1-1.0 Abs Eosinophils 0.1 K/uL 0.0-0.5 Abs Basophils 0.0 K/uL 0.0-0.3 Basic (BMP) 05/30/2018 [facility] Sodium 141 mmol/L 135-146 2 Potassium 4.8 mmol/L 3.5-5.2 Chloride# 103 mmol/L 97-110 3 Carbon Dioxide 30 mmol/L 24-34 Glucose 96 mg/dL 70-105 BUN 11 mg/dL 6-26 Creatinine 0.6 mg/dL 0.5-1.4 Calcium 9.2 mg/dL 8.5-10.2 Non Tg Egfr >60 >60 4 Tg Egfr >60 >60 5 Anion Gap 8 mmol/L 5-15 6 Laboratory test finding 05/30/2018 [facility] Vitamin D 25 Hydroxy 36 ng/mL 30-100 7 Lipid Treatment 05/30/2018 [facility] Cholesterol 158 mg/dL 50-199 Triglycerides 70 mg/dL 30-200 HDL 61 mg/dL 35-85 8 Chol/ HDL Ratio 2.6 ratio Low 3.7-5.6 VLDL 14 mg/dL 2-29 LDL (Calc) 83 mg/dL 20-99 9 Alt 13 U/L 3-42 Ast 19 U/L 8-42 Iron Panel 05/30/2018 [facility], Total 22 g/dL Low 50-170 Transferrin 211.0 mg/dL 203.0-362.0 Tibc (calc) 295 g/dL 261-478 % Iron Saturation 7.4 % Low 13.0-45.0 1 This sample is drawn by:[facility]. 2 Updated reference range on new analyzer 3 Updated reference range on new analyzer 4 Concerning GFR Guidelines: Normal function or mild renal disease, if clinically at risk: >/= 60 mL/min Moderately decreased: 30-59 Severely decreased: 15-29 [...] drugs that are excreted by the kidneys. 5 Concerning GFR Guidelines for Americans: Normal function or mild renal disease, if clinically at risk: >/= 60 mL/min Moderately decreased: 30-59 Severely decreased: 15-29 Renal failure: <15 6 Updated Reference Range -2017 7 Clinical Guidelines for recommended serum 25(OH)Vitamin D Deficient at less than 20 ng/mL Insufficient at 20 to <30 ng/mL Sufficient at 30-100 ng/mL Toxicity at greater than 100 ng/mL 8 Per NCEP ATP III Guidelines: Results lower than 40 mg/dL are suggestive of increased risk for coronary artery disease. Results > or = to 60 mg/dL are considered a negative risk factor. 9 Per NCEP ATP III Guidelines: Normal Population <130 Patients with medical conditions: CHD/DM Optimal: <100 Borderline high: 130-159 High: 160-189 Very high: >189 Procedures Date Code Description Status 08/31/2016 [id number] Bone Mineral Density Test Completed Medical Devices Description No Information Available Encounters Type Date Location Provider Dx Diagnosis Office Visit 07/08/2018 Catrina Mcallister E78.2 Mixed hyperlipidemia 11:45a MD [facility]sie M31.6 Other giant cell arteritis D50.9 Iron deficiency anemia, unspecified Z79.52 residential (current) use of systemic steroids M81.0 Age-related osteoporosis w/o current pathological fracture M17.11 Unilateral primary osteoarthritis, RIGHT knee R19.4 Change in bowel habit M72.2 Plantar fascial fibromatosis Z68.27 Body mass index (BMI) 27.0-27.9, adult Office Visit 05/30/2018 8:30a Catrina Mcallister Z96.642 Presence of LEFT MD Elsie artificial hip joint M17.11 Unilateral primary osteoarthritis, RIGHT knee M81.0 Age-related osteoporosis w/o current pathological fracture M31.6 Other giant cell arteritis N63.11 Unspecified lump in the RIGHT breast, upper outer quadrant E78.2 Mixed hyperlipidemia Z79.52 joint terminal attack controller (current) use of systemic steroids E55.9 Vitamin D deficiency, unspecified R60.0 Localized edema Assessments Date Code Description Provider 10/10/2018 R19.4 Change in bowel habit Catrina Paz MD 10/10/2018 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 Catrina Paz MD 10/10/2018 M31.6 Other giant cell arteritis Catrina Paz MD 10/10/2018 D50.9 Iron deficiency anemia, unspecified Catrina Paz MD 10/10/2018 M81.0 Age-related osteoporosis without current Catrina Paz MD pathological fractu 10/10/2018 Z12.31 Encounter for screening mammogram for Catrina Paz MD malignant neoplasm of breast 10/10/2018 N63.11 Unspecified lump in the RIGHT breast, upper Catrina Paz MD outer quadrant 10/10/2018 N39.0 Urinary tract infection, site not specified Catrina Paz MD 10/10/2018 Z68.27 Body mass index (BMI) 27.0-27.9, adult Catrina Paz MD 07/08/2018 E78.2 Mixed hyperlipidemia Catrina Paz MD 07/08/2018 M31.6 Other giant cell arteritis Catrina Paz MD 07/08/2018 D50.9 Iron deficiency anemia, unspecified Catrina Paz MD 07/08/2018 Z79.52 residential (current) use of systemic steroids Catrina Paz MD 07/08/2018 M81.0 Age-related osteoporosis without current Catrina Paz MD pathological fractu 07/08/2018 M17.11 Unilateral primary osteoarthritis, RIGHT Catrina Paz MD knee 07/08/2018 R19.4 Change in bowel habit Catrina Paz MD 07/08/2018 M72.2 Plantar fascial fibromatosis Catrina Paz MD 07/08/2018 Z68.27 Body mass index (BMI) 27.0-27.9, adult Catrina Paz MD 07/08/2018 D50.9 Iron deficiency anemia, unspecified [facility] 05/30/2018 D64.9 Anemia, unspecified [facility] 05/30/2018 Z96.642 Presence of LEFT artificial hip joint Catrina Paz MD 05/30/2018 E78.2 Mixed hyperlipidemia [facility] 05/30/2018 M17.11 Unilateral primary osteoarthritis, RIGHT [facility] knee 05/30/2018 M17.11 Unilateral primary osteoarthritis, RIGHT Catrina Paz MD knee 05/30/2018 M81.0 Age-related osteoporosis without current Catrina Paz MD pathological fractu 05/30/2018 M31.6 Other giant cell arteritis Catrina Paz MD 05/30/2018 N63.11 Unspecified lump in the RIGHT breast, upper Catrina Paz MD outer quadrant 05/30/2018 E78.2 Mixed hyperlipidemia Catrina Paz MD 05/30/2018 Z79.52 residential (current) use of systemic steroids Catrina Paz MD 05/30/2018 E55.9 Vitamin D deficiency, unspecified Catrina Paz MD 05/30/2018 R60.0 Localized edema Catrina Paz MD 05/30/2018 M17.11 Unilateral primary osteoarthritis, RIGHT [facility] knee Plan of Treatment Future Appointment(s):12/26/2018 11:00 am - Catrina Paz MD at [id number] 8:30 am - Catrina Paz MD at [id number]/10/2018 - Catrina Paz, MDR19.4 Change in bowel lgjmsK79.01 Insomnia due to medical hgskijfabW22.6 Other giant cell tzupozcslG41.9 Iron deficiency anemia, lxldiwcwfchS03.0 Age- related osteoporosis without current pathological vhtavjX31.31 Encounter for screening mammogram for malignant neoplasm of breastNew Xrays:Ultrasound Breast Limited, Ordered: 10/10/18Mammogram Tomosynthesis Screening, Ordered: Mammogram Diagnostic; Unilateral, Including CAD, Ordered: 10/10/18Follow up:2- 3 mos as AWV/EV/PEN63.11 Unspecified lump in the RIGHT breast, upper outer xlwueuizK79.0 Urinary tract infection, site not specifiedNew Medication: Sulfamethoxazole/Trimethoprim DS 800-160 mg - 1 by mouth twice a dayZ68.27 Body mass index (BMI) 27.0-27.9, adult Functional Status Description No Information Available Mental Status Description No Information Available Referrals Refer to Reason for Referral Status Appt Date Leida Cordon MD send last labs and todays note request Closed 2018 EGD/[place] 07/12 GASTRO SENT APPT NOTIFICATION, PT IS SCHEDULED AND NOTIFIED..[facility] [place], [place] [id number] [phone] Higinio Pereira MD iron def 07/07- PATIENT CANCELLED HER Patient Declined APPOINTMENT FOR 06/21 SHE STATED THAT SHE WAS FEELING BETTER. gastroenterology of [address] [place], [place] [id number] [phone]
--- OUTSIDE RECORDS SUMMARY | 2018-11-29 10:33 | XMS REPORT | Continuity of Care Document ---
:1945 External Reference #:[id number] Author Name Catrina Paz MD (transmitted by agent of provider Myriam Ramachandran) Address [address] [place] [id number] Care Team Providers Name Role Phone Hannah Jones [place] Care Team Information Clinic Assistant [phone] [facility] Radiology Care Team Information Clinic Assistant [phone] Leida Cordon MD Care Team Information Clinic Assistant [phone] Problems Active Problems Provider Date Giant cell arteritis Mor Glynn PA Onset: 04/26/2018 Lactose intolerance Indiana Kumar MD Onset: 07/10/2014 Social History Type Date Description Comments Sex Unknown Cigarette Use Quit - Age 23 Tobacco Use Start: Unknown End: Unknown Patient is a former smoker Smoking Status Reviewed: 11/14/18 Patient is a former smoker Allergies, Adverse Reactions, Alerts Active Allergies Reaction Severity Comments Date Penicillin 07/12/2014 Actemra rash 10/04/2018 Inactive Allergies No Known Drug Allergy 12/09/2009 Medications Active Medications SIG Qnty Indications Ordering Provider Date Prednisone 3 qam M31.6 Catrina Paz 11/14/2018 2.5mg MD Elsie Tablets Vitamin D3 1 by mouth every E55.9 [...] day as needed for pain History Medications Sulfamethoxazole/Trimethoprim DS 1 by mouth 6tabs N39.0 [facility] - [facility]-160[facility] twice a Catrina Zimmerman MD 11/14/2018 Tablets day Prednisone 1mg 3 qd M31.6 [place], 05/30/2018 - Tablets Catrina Zimmerman MD 11/14/2018 Celecoxib 1 po qd 30caps M17.11 [facility], 05/30/2018 - 100mg Capsules may inc to Catrina Zimmerman MD 06/03/2018 bid as alondra Omeprazole 1 by mouth 30caps D50.9 [facility], 05/30/2018 - 40mg Capsules DR every day Catrina Zimmerman MD 10/10/2018 Duloxetine HCL 1 by mouth 7caps M17.11 [facility], 05/30[facility]2018 - 30mg Caps DR Pandey every day Catrina Zimmerman MD 07/08/2018 x 1 week Duloxetine HCL 1 by mouth 30caps M17.11 [facility], 05/30/2018 - 60mg Caps DR Pandey every day Catrina Zimmerman MD 07/08/2018 Immunizations CPT Code Status Date Vaccine Lot # [id number] Refused 11/14/2018 Influenza Vac, Quadrivalent, Split, 0.5mL Dosage, Im Use [id number] Refused 11/29/2017 Influenza Vac, Quadrivalent, Split, 0.5mL Dosage, Im Use [id number] Refused 06/22/2016 Influenza Vac, Quadrivalent, Split, 0.5mL Dosage, Im [id number] Use Vital Signs Date Vital Result Comment 11/14/2018 11:45am Weight 157.00 lb Heart Rate 72 /min BP Systolic 116 mmHg BP Diastolic 60 mmHg Height 63 inches 5'3" BMI (Body Mass Index) 27.8 kg/m2 10/10/2018 1:59pm Weight 153.00 lb Heart Rate 84 /min BP Systolic 112 mmHg BP Diastolic 56 mmHg Height 63 inches 5'3" BMI (Body Mass Index) 27.1 kg/m2 Results Test Date Facility Test Result H/L Range Note Laboratory test 10/10/2018 [facility] Urine Culture Microbiology res 1 finding <SEE NOTE> CBC with Auto 07/08/2018 [facility] WBC 9.8 K/uL 4.1-11.0 Diff-fcmg RBC 4.77 [...] Basophils 0.0 K/uL 0.0-0.3 Iron Panel 07/08/2018 [facility] Iron, Total 53 g/dL 50-170 Transferrin 286.0 mg/dL 203.0-362.0 Tibc (calc) 400 g/dL 261-478 % Iron Saturation 13.2 % 13.0-45.0 CBC with Auto Diff-fcmg 05/30/2018 [facility] WBC 9.7 K/uL 4.1-11.0 2 RBC 3.60 M/uL Low 4.00-5.40 Hemoglobin 11.7 [...] Basophils 0.0 K/uL 0.0-0.3 Basic (BMP) 05/30/2018 [facility] Sodium 141 mmol/L 135-146 3 Potassium 4.8 mmol/L 3.5-5.2 Chloride# 103 mmol/L 97-110 4 Carbon Dioxide 30 mmol/L 24-34 Glucose 96 mg/dL 70-105 BUN 11 mg/dL 6-26 Creatinine 0.6 mg/dL 0.5-1.4 Calcium 9.2 mg/dL 8.5-10.2 Non Tg Egfr >60 >60 5 Tg Egfr >60 >60 6 Anion Gap 8 mmol/L 5-15 7 Laboratory test finding 05/30/2018 [facility] Vitamin D 25 Hydroxy 36 ng/mL 30-100 8 Lipid Treatment 05/30/2018 [facility] Cholesterol 158 mg/dL 50-199 Triglycerides 70 mg/dL 30-200 HDL 61 mg/dL 35-85 9 Chol/ HDL Ratio 2.6 ratio Low 3.7-5.6 VLDL 14 mg/dL 2-29 LDL (Calc) 83 mg/dL 20-99 10 Alt 13 U/L 3-42 Ast 19 U/L 8-42 Iron Panel 05/30/2018 [facility] Iron, Total 22 g/dL Low 50-170 Transferrin 211.0 mg/dL 203.0-362.0 Tibc (calc) 295 g/dL 261-478 % Iron Saturation 7.4 % Low 13.0-45.0 1 Microbiology results SOURCE Clean Catch Midstream FINAL RESULT No growth 2 This sample is drawn by:[facility]LL. 3 Updated reference range on new analyzer 4 Updated reference range on new analyzer 5 Concerning GFR Guidelines: Normal function or mild [...] drugs that are excreted by the kidneys. 6 Concerning GFR Guidelines for Americans: Normal function or mild renal disease, if clinically at risk: >/= 60 mL/min Moderately decreased: 30-59 Severely decreased: 15-29 Renal failure: <15 7 Updated Reference Range -2017 8 Clinical Guidelines for recommended serum 25(OH)Vitamin D Deficient at less than 20 ng/mL Insufficient at 20 to <30 ng/mL Sufficient at 30-100 ng/mL Toxicity at greater than 100 ng/mL 9 Per NCEP ATP III Guidelines: Results lower than 40 mg/dL are suggestive of increased risk for coronary artery disease. Results > or = to 60 mg/dL are considered a negative risk factor. 10 Per NCEP ATP III Guidelines: Normal Population <130 Patients with medical conditions: CHD/DM Optimal: <100 Borderline high: 130-159 High: 160-189 Very high: >189 Procedures Date Code Description Status 11/14/2018 16075 Electrocardiogram Complete Completed 10/27/2018 [id number] Mammogram Completed 08/31/2016 [id number] Bone Mineral Density Test Completed Medical Devices Description No Information Available Encounters Type Date Location Provider Dx Diagnosis Office Visit 10/10/2018 Catrina Mcallister R19.4 Change in bowel habit 1:45p MD Elsie 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 M31.6 Other giant cell arteritis D50.9 Iron deficiency anemia, unspecified M81.0 Age-related osteoporosis w/o current pathological fracture Z12.31 Encntr screen mammogram for malignant neoplasm of breast N63.11 Unspecified lump in the RIGHT breast, upper outer quadrant N39.0 Urinary tract infection, site not specified Z68.27 Body mass index (BMI) 27.0-27.9, adult Office Visit 07/08/2018 11:45a Catrina Mcallister E78.2 Mixed hyperlipidemia MD Elsie M31.6 Other giant cell arteritis D50.9 Iron deficiency anemia, unspecified Z79.52 senior care (current) use of systemic steroids M81.0 Age-related osteoporosis w/o current pathological fracture M17.11 Unilateral primary osteoarthritis, RIGHT knee R19.4 Change in bowel habit M72.2 Plantar fascial fibromatosis Z68.27 Body mass index (BMI) 27.0-27.9, adult Office Visit 05/30/2018 8:30a Catrina Mcallister Z96.642 Presence of COLLEEN Zimmerman MD artificial hip joint M17.11 Unilateral primary osteoarthritis, RIGHT knee M81.0 Age-related osteoporosis w/o current pathological fracture M31.6 Other giant cell arteritis N63.11 Unspecified lump in the RIGHT breast, upper outer quadrant E78.2 Mixed hyperlipidemia Z79.52 senior care (current) use of systemic steroids E55.9 Vitamin D deficiency, unspecified R60.0 Localized edema Assessments Date Code Description Provider 11/14/2018 Z01.818 Encounter for other preprocedural Catrina Paz MD examination 11/14/2018 M31.6 Other giant cell arteritis Catrina Paz MD 11/14/2018 D50.9 Iron deficiency anemia, unspecified Catrina Paz MD 11/14/2018 Z79.52 senior care (current) use of systemic steroids Catrina Paz MD 11/14/2018 M17.11 Unilateral primary osteoarthritis, RIGHT Catrina Paz MD knee 11/14/2018 M81.0 Age-related osteoporosis without current Catrina Paz MD pathological fractu 11/14/2018 N39.0 Urinary tract infection, site not specified Catrina Paz MD 11/14/2018 E55.9 Vitamin D deficiency, unspecified Catrina Paz MD 11/14/2018 Z68.27 Body mass index (BMI) 27.0-27.9, adult Catrina Paz MD 10/10/2018 R19.4 Change in bowel habit Catrina [...] index (BMI) 27.0-27.9, adult Catrina Paz MD 10/10/2018 N39.0 Urinary tract infection, site not specified [facility] 07/08/2018 E78.2 Mixed hyperlipidemia Catrina Paz MD 07/08/2018 M31.6 Other giant cell arteritis Catrina Paz MD 07/08/2018 D50.9 Iron deficiency anemia, unspecified Catrina Paz MD 07/08/2018 Z79.52 senior care (current) use of systemic steroids Catrina Paz [...] Mixed hyperlipidemia Catrina Paz MD 05/30/2018 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 Catrina Paz MD 05/30/2018 E55.9 Vitamin D deficiency, unspecified Catrina Paz MD 05/30/2018 R60.0 Localized edema Catrina Paz MD 05/30/2018 M17.11 Unilateral primary osteoarthritis, RIGHT [facility] knee Plan of Treatment Future Appointment(s):12/26/2018 11:00 am - Catrina Paz MD at [facility] Functional Status Description No Information Available Mental Status Description No Information Available Referrals Refer to Dr Reason for Referral Status Appt Date Leida Cordon MD send last labs and todays note request Closed 2018 EGD/[facility] 07/12 GASTRO SENT APPT NOTIFICATION, PT IS SCHEDULED AND NOTIFIED..[address] [place] [address] [phone] Higinio Pereira MD iron def 07/07- PATIENT CANCELLED HER Patient Declined APPOINTMENT FOR 06/21 SHE STATED THAT SHE WAS FEELING BETTER. gastroenterology of [address] [place] [address] [phone]
--- OUTSIDE RECORDS SUMMARY | 2018-11-29 10:33 | XMS REPORT | Continuity of Care Document ---
:1945 External Reference #:[id number] Author Name Madeline Rodney M.D. 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 Onset: region and thigh Prosthetic arthroplasty of the hip Madeline Rodney M.D. Onset: 02/09/2018 Localized, primary osteoarthritis Madeline Rodney M.D. Onset: 04/08/2018 Acquired genu valgum Madeline Rodney M.D. Onset: 06/29/2018 Social History Type Date Description Comments Sex Unknown ETOH Use Occasionally consumes alcohol Tobacco Use Start: Unknown End: Patient is a former smoker quit 48 years ago Unknown Smoking Status Reviewed: 10/28/18 Patient is a former smoker quit 48 years ago Allergies, Adverse Reactions, Alerts Description No Known Drug Allergies Medications Active Medications SIG Qnty Indications Ordering Provider Date Thigh High Compression 1pair Jesus Casey MD 05/23/2018 Stockings Prednisone 1 by mouth every Unknown 10mg Tablets day Probiotic 1 by mouth every Unknown Capsules day Calcium 500+D3 1 tab by mouth Unknown twice a day [id number] Tablets Alendronate Sodium take 1 tablet by Unknown 70mg mouth every week Tablets Calcium Lactate Unknown Tumeric Forte Unknown CBD Oil one gtt po bid Unknown 500mg Cataplex Unknown Tylenol Unknown History Medications Nucynta 1 tab by mouth 30tabs M25.561 Madeline Rodney, 05/09/2018 - 50mg Tablets q4-6 hours as M.D. 05/27/2018 needed pain Cyclobenzaprine HCL take 1 tab by 90tabs Madeline Rodney, 05/02/2018 - 10mg mouth every 8 M.D. 05/27/2018 Tablets hours as needed Medications Administered in Office Medication SIG Qnty Indications Ordering Provider Date Depomedrol 40MG Madeline Rodney M.D. 06/29/2018 Injection Depomedrol 40MG Madeline Rodney M.D. 06/29/2018 Injection Synvisc Or Synvisc-One Injection 1 Madeline Rodney M.D. 05/16/2018 MG Injection Synvisc Or Synvisc-One Injection 1 Madeline Rodney M.D. 05/09/2018 MG Injection Triamcinolone (Kenalog) Jesus Casey MD 05/03/2018 Injection Synvisc Or Synvisc-One Injection 1 Madeline Rodney M.D. 05/02/2018 MG Injection Depomedrol 40MG Madelien Rodney M.D. 12/10/2017 Injection Immunizations Description No Information Available Vital Signs Date Vital Result Comment 10/28/2018 2:05pm Height 64 inches 5'4" Weight 150.00 lb stated Heart Rate 68 /min BP Systolic 126 mmHg BP Diastolic 70 mmHg Respiratory Rate 12 /min Pain Level 5 only when walking or standing up from a seat BMI (Body Mass Index) 25.7 kg/m2 06/29/2018 10:50am Height 64 inches 5'4" Weight 150.00 lb BP Systolic 124 mmHg BP Diastolic 64 mmHg Body Temperature 98.1 F BMI (Body Mass Index) 25.7 kg/m2 Results Description No Information Available Procedures Date Code Description Status 06/29/2018 Inject/Drain Joint/Bursa Major W/O US Completed 05/16/2018 Inject/Drain Joint/Bursa Major W/O US Completed 05/09/2018 Inject/Drain Joint/Bursa Major W/O US Completed 05/03/2018 Inj/Aspir, Small Joint/Bursa W/ US Completed 05/02/2018 Inject/Drain Joint/Bursa Major W/O US Completed Medical Devices Description No Information Available Encounters Type Date Location Provider Dx Diagnosis Office Visit 10/28/2018 [facility] Madeline Rodney, M25.561 Pain in right 2:00p [facility] M.D. knee M25.461 Effusion, right knee M17.0 Bilateral primary osteoarthritis of knee M21.061 Valgus deformity, not elsewhere classified, right knee Office Visit 06/29/2018 10:45a [facility] Madeline Rodney, M25.562 Pain in left Of [facility]. M.D. knee M25.561 Pain in right knee M25.461 Effusion, right knee M25.462 Effusion, left knee M17.0 Bilateral primary osteoarthritis of knee M21.061 Valgus deformity, not elsewhere classified, right knee Office Visit 05/30/2018 3:15p [facility] Madeline Rodney, M25.561 Pain in right Of [facility]. M.D. knee M25.461 Effusion, right knee M17.11 Unilateral primary osteoarthritis, right knee Office Visit 05/23/2018 Orthopedic Jesus Casey, M17.11 Unilateral primary 3:30p Services Of MD tamayo, C.M.A. right knee M25.471 Effusion, right ankle M25.561 Pain in right knee M25.461 Effusion, right knee M19.071 Primary osteoarthritis, right ankle and foot Office Visit 05/03/2018 2:00p Chaya Casey, M20.21 [facility] Of MD rosales, right C.M.A. foot Office Visit 05/02/2018 1:30p Orthopedic Madeline Rodney M79.671 Pain in right Services Of M.DBuddy foot C.M.A. M17.11 Unilateral primary osteoarthritis, right knee M25.561 Pain in right knee M25.461 Effusion, right knee M25.571 Pain in right ankle and joints of right foot M19.071 Primary osteoarthritis, right ankle and foot Assessments Date Code Description Provider 10/28/2018 M25.561 Pain in right knee Madeline Rodney M.D. 10/28/2018 M25.461 Effusion, right knee Madeline Rodney M.D. 10/28/2018 M17.0 Bilateral primary osteoarthritis of knee Madeline Rodney, MiguelDBuddy 10/28/2018 M21.061 Valgus deformity, not elsewhere classified, Madeline Rodney M.D. right knee 06/29/2018 M25.562 Pain in left knee Elsie Fontanez.DBuddy 06/29/2018 M25.561 Pain in right knee Elsie Fontanez.DBuddy 06/29/2018 M25.461 Effusion, right knee Miguel FontanezDBuddy 06/29/2018 M25.462 Effusion, left knee Miguel FontanezDBuddy 06/29/2018 M17.0 Bilateral primary osteoarthritis of knee Madeline Rodney M.D. 06/29/2018 M21.061 Valgus deformity, not elsewhere classified, Madeline Rodney M.D. right knee 05/30/2018 M25.561 Pain in right knee Madeline Rodney M.D. 05/30/2018 M25.461 Effusion, right knee Madeline Rodney M.D. 05/30/2018 M17.11 Unilateral primary osteoarthritis, right knee Madeline Rodney M.D. 05/23/2018 M17.11 Unilateral primary osteoarthritis, right knee Jesus Casey MD 05/23/2018 M25.471 Effusion, right ankle Jesus Casey MD 05/23/2018 M25.561 Pain in right knee Jesus Casey MD 05/23/2018 M25.461 Effusion, right knee Jesus Casey MD 05/23/2018 M19.071 Primary osteoarthritis, right ankle and foot Jesus Casey MD 05/16/2018 M25.561 Pain in right knee Madeline Rodney M.D. 05/16/2018 M25.461 Effusion, right knee Madeline Rodney M.D. 05/16/2018 M17.11 Unilateral primary osteoarthritis, right knee Madeline Rodney M.D. 05/09/2018 M25.561 Pain in right knee Madeline Rodney M.D. 05/09/2018 M25.461 Effusion, right knee Madeline Rodney M.D. 05/09/2018 M17.11 Unilateral primary osteoarthritis, right knee Madeline Rodney M.D. 05/03/2018 M20.21 Hallux rigidus, right foot Jesus Casey MD 05/02/2018 M79.671 Pain in right foot Madeline Rodney M.D. 05/02/2018 M17.11 Unilateral primary osteoarthritis, right knee Madeline Rodney M.D. 05/02/2018 M25.561 Pain in right knee Madeline Rodney M.D. 05/02/2018 M25.461 Effusion, right knee Madeline Rodney M.D. 05/02/2018 M25.571 Pain in right ankle and joints of right foot Madeline Rodney M.D. 05/02/2018 M19.071 Primary osteoarthritis, right ankle and foot Madeline Rodney M.D. Plan of Treatment Future Appointment(s):11/21/2018 1:45 pm - [facility] - Madeline Rodney M.D.M25.561 Pain in right kneeFollow up:Follow up: 7-10 days before hjobjotB59.461 Effusion, right kneeM17.0 Bilateral primary osteoarthritis of kneeM21.061 Valgus deformity, not elsewhere classified, right knee Functional Status Description No Information Available Mental Status Description No Information Available Referrals Refer to Reason for Referral Status Appt Date Pain Clinic chronic knee pain, back pain Sent 06/10/[address] [place] [address] [phone]
--- OUTSIDE RECORDS SUMMARY | 2018-11-29 10:33 | XMS REPORT | Continuity of Care Document ---
:1945 External Reference #:[id number] Author Name Madeline Rodney M.D. 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 Medicine Problems Active Problems Provider Date Localized, [...] 48 years ago Unknown Smoking Status Reviewed: 11/21/18 Patient is a former smoker quit 48 years ago Allergies, Adverse Reactions, Alerts Description No Known Drug Allergies Medications Active Medications SIG Qnty Indications Ordering Provider Date Thigh High Compression 1pair Jesus Casey MD 05/23/2018 Stockings Prednisone 1 by mouth every Unknown 10mg Tablets day Probiotic 1 by mouth every Unknown Capsules day Calcium 500+D3 1 tab by mouth Unknown twice a day [id number] Tablets Alendronate Sodium take 1 tablet by Unknown 70mg mouth every week Tablets Calcium Lactate Unknown Tumeric Forte Unknown CBD Oil one gtt po bid Unknown 500mg Cataplex Unknown Tylenol Unknown Medications Administered in Office Medication SIG Qnty [...] Rodney M.D. 05/02/2018 MG Injection Depomedrol 40MG Madeline Rodney M.D. 12/10/2017 Injection Immunizations Description No Information Available Vital Signs Date Vital Result Comment 11/21/2018 2:01pm Height 64 inches 5'4" Weight 157.00 lb Heart Rate 80 /min BP Systolic 138 mmHg BP Diastolic 72 mmHg Body Temperature 97.6 F Pain Level 0 BMI (Body Mass Index) 26.9 kg/m2 10/28/2018 2:05pm Height 64 inches 5'4" Weight 150.00 lb stated Heart Rate 68 /min BP Systolic 126 mmHg BP Diastolic 70 mmHg Respiratory Rate 12 /min Pain Level 5 only when walking or standing up from a seat BMI (Body Mass Index) 25.7 kg/m2 Results Description No Information Available Procedures Date Code Description Status 06/29/2018 83492 Inject/Drain Joint/Bursa Major W/O US Completed Medical Devices Description No Information Available Encounters Type Date Location Provider Dx Diagnosis Office Visit 10/28/2018 [facility] Madeline Rodney, M25.561 Pain in right 2:00p at [place] M.D. knee M25.461 Effusion, right knee M17.0 Bilateral primary osteoarthritis of knee M21.061 Valgus deformity, not elsewhere classified, right knee M17.11 Unilateral primary osteoarthritis, right knee Office Visit 06/29/2018 10:45a [facility] Madeline Rodney, M25.562 Pain in left at [place] M.D. knee M25.561 Pain in right knee M25.461 Effusion, right knee M25.462 Effusion, left knee M17.0 Bilateral primary osteoarthritis of knee M21.061 Valgus deformity, not elsewhere classified, right knee Office Visit 05/30/2018 3:15p [facility] Madeline Rodney, M25.561 Pain in right at [place] M.D. knee M25.461 Effusion, right knee M17.11 Unilateral primary osteoarthritis, right knee Office Visit 05/23/2018 [facility] Carmela, M17.11 Unilateral primary 3:30p Orthopedics at [facility], [place] right knee M25.471 Effusion, right ankle M25.561 Pain in right knee M25.461 Effusion, right knee M19.071 Primary osteoarthritis, right ankle and foot Assessments Date Code Description Provider 10/28/2018 M25.561 Pain in right knee Madeline Rodney M.D. 10/28/2018 M25.461 Effusion, right knee Madeline Rodney M.D. 10/28/2018 M17.0 Bilateral primary osteoarthritis of knee Madeline Rodney M.D. 10/28/2018 M21.061 Valgus deformity, not elsewhere classified, Madeline Rodney M.D. right knee 10/28/2018 M17.11 Unilateral primary osteoarthritis, right knee Madeline Rodney M.D. 06/29/2018 M25.562 Pain in left knee Madeline Rodney M.D. 06/29/2018 M25.561 Pain in right knee Madeline Rodney M.D. 06/29/2018 M25.461 Effusion, right knee Madeline Rodney M.D. 06/29/2018 M25.462 Effusion, left knee Madeline Rodney M.D. 06/29/2018 M17.0 Bilateral primary osteoarthritis of knee Madeline Rodney M.D. 06/29/2018 M21.061 Valgus deformity, not elsewhere classified, Madeline Rodney M.D. right knee 05/30/2018 M25.561 Pain in right knee Madeline Rodney M.D. 05/30/2018 M25.461 Effusion, right knee Madeline Rodney M.D. 05/30/2018 M17.11 Unilateral primary osteoarthritis, right knee Madleine Rodney M.D. 05/23/2018 M17.11 Unilateral primary osteoarthritis, right knee Jesus Casey MD 05/23/2018 M25.471 Effusion, right ankle Jesus Casey MD 05/23/2018 M25.561 Pain in right knee Jesus Casey MD 05/23/2018 M25.461 Effusion, right knee Jesus Casey MD 05/23/2018 M19.071 Primary osteoarthritis, right ankle and foot Jesus Casey MD Plan of Treatment Future Appointment(s):11/29/2018 2:15 pm - Wm Murguia PA-C at [facility]11/29/2018 2:15 pm - CHRIS Mercado at [facility]11/29/2018 2:15 pm - [facility] Status Description No Information Available Mental Status Description No Information Available Referrals Description No Information Available
--- OUTSIDE RECORDS SUMMARY | 2018-11-29 10:33 | XMS REPORT | Continuity of Care Document ---
:1945 External Reference #:[id number] Author Name Catrina Paz MD Address [address] [place] [id number] Care Team Providers Name Role Phone Hannah Jones [place] Care Team Information Supervisor Dry Cleaning [phone] [facility] Radiology Care Team Information Supervisor Dry Cleaning Leida Cordon MD Care Team Information Supervisor Dry Cleaning [phone] Problems Active Problems Provider Date Giant cell [...] Sulfamethoxazole/Trimethoprim DS 1 by mouth 6tabs N39.0 Jackson, 2018 - 800-160mg twice a Catrina Zimmerman MD 11/14/2018 Tablets day Prednisone 1mg 3 qd M31.6 Jackson, 05/30/2018 - Tablets Catrina Zimmerman MD 11/14/2018 Celecoxib 1 po qd 30caps M17.11 Jackson, 05/30/2018 - 100mg Capsules may inc to Catrina Zimmerman MD 06/03/2018 bid as alondra Omeprazole 1 by mouth 30caps D50.9 Jackson, 05/30/2018 - 40mg Capsules DR every day Catrina Zimmerman MD 10/10/2018 Duloxetine HCL 1 by mouth 7caps M17.11 Jackson, 05/30/2018 - 30mg Caps DR Part every day Catrina Zimmerman MD 07/08/2018 x 1 week Duloxetine HCL 1 by mouth 30caps M17.11 Jackson, 05/30/2018 - 60mg Caps DR Part every day Catrina Zimmerman MD 07/08/2018 Immunizations CPT Code Status Date Vaccine Lot # [id number] Refused 11/14/2018 Influenza Vac, Quadrivalent, Split, 0.5mL Dosage, Im Use [id number] Refused 11/29/2017 Influenza Vac, Quadrivalent, Split, 0.5mL Dosage, Im Use [id number] Refused 06/22/2016 Influenza Vac, Quadrivalent, Split, 0.5mL Dosage, Im [id number] Use Vital Signs Date Vital Result Comment [...] % 13.0-45.0 [facility] K/uL 4.1-11.0 2 RBC 3.60 [...] mmol/L 5-15 7 Laboratory test finding 05/30/2018 [place] Vitamin D 25 Hydroxy 36 ng/mL 30-100 8 Lipid Treatment 05/30/2018 [place] Cholesterol 158 mg/dL 50-199 Triglycerides 70 mg/dL [...] >189 Procedures Date Code Description Status 11/14/2018 99096 Electrocardiogram Complete Completed 10/27/2018 41299319 Mammogram Completed 08/31/2016 [id number] Bone Mineral Density Test Completed Medical Devices [...] (BMI) 27.0-27.9, adult Office Visit 07/08/2018 11:45a Cartina Mcallister E78.2 Mixed hyperlipidemia MD Elsie M31.6 Other giant cell arteritis D50.9 Iron deficiency anemia, unspecified Z79.52 retirement (current) use of systemic steroids M81.0 Age-related [...] upper outer quadrant E78.2 Mixed hyperlipidemia 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 E55.9 Vitamin D deficiency, unspecified R60.0 Localized edema Assessments Date Code Description Provider 11/14/2018 Z01.818 Encounter for other preprocedural Catrina Paz MD examination 11/14/2018 M31.6 Other giant cell arteritis Catrina Paz MD 11/14/2018 D50.9 Iron deficiency anemia, unspecified Catrina Paz MD 11/14/2018 Z79.52 retirement (current) use of systemic steroids Catrian Paz MD 11/14/2018 M17.11 Unilateral primary osteoarthritis, [...] anemia, unspecified Catrina Paz MD 07/08/2018 Z79.52 retirement (current) use of systemic steroids Catrina Paz [...] Mixed hyperlipidemia Catrina Paz MD 05/30/2018 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 Catrina Paz MD 05/30/2018 E55.9 Vitamin D deficiency, unspecified Catrina Paz MD 05/30/2018 R60.0 Localized edema Catrina Paz MD 05/30/2018 M17.11 Unilateral primary osteoarthritis, RIGHT [facility] knee Plan of Treatment Future Appointment(s):12/26/2018 11:00 am - Catrina Paz MD at [place] Functional Status Description No Information Available Mental Status Description No Information Available Referrals Refer to Reason for Referral Status Appt Date Leida Cordon MD send last labs and todays note request Closed 2018 EGD/[place] 07/12 GASTRO SENT APPT NOTIFICATION, PT IS SCHEDULED AND NOTIFIED..[address] [place], [place] [id number] [phone] Higinio Pereira MD iron def 07/07- PATIENT CANCELLED HER Patient Declined APPOINTMENT FOR 06/21 SHE STATED THAT SHE WAS FEELING BETTER. gastroenterology of [address], [place] [id number] [phone]
[2018-11-29] MEDS ORDERED: Dexamethasone IV* 4 MG/ML 1 ML (4 MG) ONE (10:54)
[2018-11-29] MEDS ORDERED: ceFAZolin 2 GM in NS PREMIX(*) 2 GM/100 ML BAG IVPB ONE (10:55)
[2018-11-29] MEDS ORDERED: celeCOXIB CAP* 200 MG ONE (10:55)
[2018-11-29] MEDS ORDERED: Famotidine IV* 10 MG/ML 2 ML (20 mg) ONE (10:55)
[2018-11-29] MEDS ORDERED: Gabapentin CAP(*) 300 MG ONE (10:55)
[2018-11-29] MEDS ORDERED: fentaNYL* 50 MCG/ML 2 ML VIAL (100 MCG VIAL) ONE (12:18)
[2018-11-29] MEDS ORDERED: ROPIVACAINE 5 MG/ML 30 ML BTL (0.5%) ONE (12:19)
[2018-11-29] MEDS ORDERED: Midazolam* 1 MG/ML 2 ML VIAL (2 MG) ONE (12:19)
[2018-11-29] MEDS ORDERED: Bupivacaine 0.5% SDV PF* 30ML VIAL ONE (13:21)
[2018-11-29] MEDS ORDERED: EPHEDrine (Pressors)* 50 MG/ML VIAL ONE (14:09)
[2018-11-29] MEDS ORDERED: Phenylephrine 10 MG/ML VIAL* 1 ML VIAL ONE (14:38)
[2018-11-29] MEDS ORDERED: Ondansetron TAB* 4 MG PO PRN (15:06)
[2018-11-29] MEDS ORDERED: diPHENhydraMINE PO* 25 MG PO PRN (15:06)
[2018-11-29] MEDS ORDERED: Polyethylene Glycol 3350* 17 GM PACKET PO PRN (15:06)
[2018-11-29] MEDS ORDERED: diPHENhydraMINE IV* 50 MG/ML 1 ml VIAL (BENADRYL) IV PRN (15:06)
[2018-11-29] MEDS ORDERED: Ondansetron INJ* 2 MG/ML VIAL IV PRN (15:06)
[2018-11-29] MEDS ORDERED: Morphine INJ* 2 MG/ML 1 ML SYRINGE (TWO MG - NEW SYRINGE VERSION) IV PRN (15:06)
[2018-11-29] MEDS ORDERED: Magnesium Hydroxide LIQ* 30 ML UDC PO PRN (15:06)
[2018-11-29] MEDS ORDERED: Ondansetron ODT TAB* 4 MG PO PRN (15:06)
[2018-11-29] MEDS ORDERED: Clindamycin 600 MG IVPREMIX(* 600 MG/50 ML SDV IV SCH (16:00)
[2018-11-29] MEDS: oxyCODONE/Acetamin 5/325 MG* TAB PO PRN (17:45)
[2018-11-29] MEDS: Lactated Ringers 1000 ML Bag* 1,000 ML IV SCH (17:46)
--- NOTE | 2018-11-29 19:27 | OP ---
Operative Report - Blank - Operative Report Date of Operation: 11/29/18 Note: CORETTA SANTOS 1945 Date of Surgery: 11/29/18 Madeline Rodney MD American Board Certified Orthotist: Sanjeev PEREZ did help throughout the procedure with preparation of the knee, wound retraction, manipulation of the knee, and wound closure. Anesthesiologist: Dr. Ramírez Anesthesia Type: Spinal Preoperative Diagnosis: Right severe degenerative osteoarthritis of the knee with valgus deformity Postoperative Diagnosis: As above Procedure Performed: Right Total Knee Arthroplasty Tourniquet time: 53 minutes Complications: None Specimen: Bone and cartilage from the right knee joint sent to pathology. Hardware Used: Cemented Art [employer] Nephew total knee hardware was used - For the femur a size 5 right narrow legion posterior stabilized femoral component, for the tibia a size 3 right radha II tibial baseplate, for the insert a size 9mm constrained 3-4 posterior stabilized articular polyethylene insert, and for the patella a size 32 3-peg all poly patella. Brief History/Indication: CORETTA SANTOS was known in clinic and had a history of severe right knee pain and swelling. She failed conservative treatment with anti-inflammatories, pain pills, intra-articular injections and physical therapy. She elected to undergo right total knee arthroplasty due to continued pain and decreased quality of life. Radiographs showed severe end stage osteoarthritis of the knee with bone on bone contact. Informed consent was obtained from the patient. She understood the risks of surgery included but were not limited to: bleeding, infection, damage to nearby structures, intraoperative fracture, nerve palsy, failure of the hardware, early loosening, knee stiffness or loss of motion, anesthesia complications, stroke, heart attack , blood clot and . She wished to proceed. Intra-Operative Findings: Intraoperatively the patient was noted to have severe loss of cartilage in all 3 compartments of the knee. She had preop flexion contracture of 15 degrees and 15 degree valgus deformity to start the case. She was noted throughout the case to have severe osteopenia. Description of the Procedure: CORETTA SANTOS was identified in the preanesthesia unit. Her right knee was marked as the correct operative side. Informed consent was signed and placed in the chart. The patient was taken to the operating room and placed under anesthesia without complication. A nath catheter was placed. A tourniquet was placed on the right thigh. The right lower extremity was prepped and draped in the usual sterile fashion. Preoperative time-out was made to correctly identify the patient, side and site. Appropriate intraoperative antibiotics were given within one hour of incision. Tourniquet was inflated. A midline incision was made and carried sharply down to the extensor mechanism. A new 10 blade was used to make a standard medial parapatellar arthrotomy. The patella was subluxed laterally. Electrocautery was used to dissect soft tissue off the superomedial tibia to the midsagittal plane. The knee was flexed up. The anterior horn of the lateral meniscus and the ACL were sharply incised. A drill was used to enter the distal femur. The intramedullary distal femoral cutting guide was pinned on the distal femur. The oscillating saw was used to make the distal femoral cut. The external rotation guide was pinned on the distal femur and the distal femur was sized to a size 5. The size 5 multi-cutting jig was pinned on the distal femur. The oscillating saw was used to make the appropriate 4 chamfer cuts. Next the PCL was completely released. The extramedullary tibial cutting guide was pinned on the proximal tibia and the oscillating saw was used to make the proximal tibial cut perpendicular to the mechanical axis of the tibia. The bone was carefully removed. The knee was brought out into full extension. The spacer block was placed and had excellent fit with the knee in full extension. The medial and lateral ligaments were well balanced. The flexion and extension gaps were well balanced. The knee was flexed up. Lamina burring machine operator was placed both medially and laterally. Any remaining meniscus was removed with electrocautery. Curved osteotome was used to remove any posterior osteophytes. The tibial tray and drop lilibeth were placed and confirmed a satisfactory tibial cut. The size 5 right narrow femoral trial was impacted onto the distal femur. This trial had excellent fit and stability. The box for the posterior stabilized implant was prepared using a box cut osteotome and a reamer. Next a tibial tray trial and 9 mm insert trial was placed. The knee was taken through a range of motion and had full extension to 130 degrees of flexion. Patellofemoral tracking was satisfactory. The patella was inverted and sized to a size 32. Three peg holes were drilled through the size 32 drill guide. The trial patella was placed and the knee was taken through a range of motion. There was satisfactory patellofemoral tracking. All trials were removed. The tibia was subluxed anteriorly and sized to a size 3. The proximal tibial was prepared with a size 3 keel punch. All bony cut surfaces were irrigated with sterile saline and dried. Final implants were cemented into place starting with the tibia, followed by the femur, and last the patella. A 9 mm insert trial was placed and the knee was brought into full extension. Tourniquet was turned down and the knee was copiously irrigated with sterile saline. Electrocautery was used to obtain meticulous hemostasis. Once the cement had fully cured, the insert trial was removed. Any excess cement was removed from around the hardware and capsule. Final insert chosen was a 9 mm posterior stabilized Radha II articular insert size 3-4. Stability of the insert was checked and noted to be stable. The extensor mechanism was closed using number 1 vicryls. The rest of the incision was closed in a layered fashion using 0 and 2-0 vicryls. The skin was closed using 3-0 nylon suture. Sterile xeroform, 4x4s and webril were used to cover the incision. Jabier wrap and cold pack were used to cover the dressings. The patients anesthesia was reversed without difficulty. She was taken to the PACU in stable condition. Intended weight-bearing will be as tolerated.
[2018-11-29] MEDS: oxyCODONE TAB* 5 MG TAB PO PRN (21:14)
[2018-11-29] MEDS: Magnesium Hydroxide LIQ* 30 ML UDC PO SCH (21:15)
[2018-11-29] MEDS: Docusate CAP* 100 MG PO SCH (21:15)
[2018-11-29] MEDS: Acetaminophen TAB* 325 MG PO SCH (21:16)
[2018-11-29] MEDS: Clindamycin 600 MG/D5W BAG(*) 600 MG/50 ML BAG IV SCH (22:11)
[2018-11-30] MEDS: Lactated Ringers 1000 ML Bag* 1,000 ML IV SCH ×2 (03:50→10:37)
[2018-11-30] MEDS: oxyCODONE/Acetamin 5/325 MG* TAB PO PRN ×2 (05:55→12:06)
[2018-11-30] MEDS: Clindamycin 600 MG/D5W BAG(*) 600 MG/50 ML BAG IV SCH ×2 (05:56→14:53)
[2018-11-30] MEDS: Acetaminophen TAB* 325 MG PO SCH ×3 (06:13→21:40)
[2018-11-30 07:14] LABS: Hematocrit 32 % (35-47); Hemoglobin 10.5 g/dL (12.0-16.0); Mean Platelet Volume 7.4 fL (7.4-10.4); Platelet Count 398 10^3/uL (150-450)
[2018-11-30 07:30] LABS: BUN/Creatinine Ratio 20.3 (8-20); Calcium 8.4 mg/dL (8.6-10.3); EGFR African American 110.1 (>60); Potassium 4.9 mmol/L (3.5-5.0)
[2018-11-30] MEDS ORDERED: NS 0.9% 500 ML* 500 ML IV ONE (08:33)
--- NOTE | 2018-11-30 09:26 | PN ---
Progress Note - Progress Note Date of Service: 11/30/18 SOAP: Subjective: []Pt seen at bedside. She feels well without complaints. Has not yet worked with PT. Denies CP, SOB, dizziness, lightheadedness, nausea. Objective: []Gen: Appears well, NAD, wearing nasal cannula RLE: Right knee dressing CDI no erythema, thigh is soft, DF/PF intact, DP2+, sensation intact to light touch distally Calves supple and nontender without erythema, edema or palpable cords Assessment: [] POD 1 sp RTK Plan: []WBAT PT/OT Low BP - NS 500 ml bolus ordered eliquis 2.5 mg po BID x 30 days post op Plan for DC home when PT goals met likely tomorrow Vital Signs Temp 97.4 F 11/30/18 07:30 Pulse 60 11/30/18 07:30 Resp 17 11/30/18 07:30 BP 91/47 11/30/18 07:30 Pulse Ox 100 11/30/18 07:30 Intake & Output 11/29/18 11/30/18 11/30/18 18:59 06:59 18:59 Intake Total 900 210 Output Total 600 Balance 300 210 Weight 157 lb Intake: Oral 900 210 Output: Fuentes 600 Laboratory Last Values Hgb 10.5 g/dL (12.0-16.0) L 11/30/18 06:51 Hct 32 % (35-47) L 11/30/18 06:51 Plt Count 398 10^3/uL (150-450) 11/30/18 06:51 MPV 7.4 fL (7.4-10.4) 11/30/18 06:51 Sodium 138 mmol/L (135-145) 11/30/18 06:51 Potassium 4.9 mmol/L (3.5-5.0) 11/30/18 06:51 Chloride 105 mmol/L (101-111) 11/30/18 06:51 Carbon Dioxide 29 mmol/L (22-32) 11/30/18 06:51 Anion Gap 4 mmol/L (2-11) 11/30/18 06:51 BUN 13 mg/dL (6-24) 11/30/18 06:51 Creatinine 0.64 mg/dL (0.51-0.95) 11/30/18 06:51 Est GFR ( Amer) 110.1 (>60) 11/30/18 06:51 Est GFR (Non-Af Amer) 91.0 (>60) 11/30/18 06:51 BUN/Creatinine Ratio 20.3 (8-20) H 11/30/18 06:51 Glucose 118 mg/dL (70-100) H 11/30/18 06:51 Calcium 8.4 mg/dL (8.6-10.3) L 11/30/18 06:51
[2018-11-30] MEDS: Apixaban* 2.5 MG TAB PO SCH ×2 (10:25→21:28)
[2018-11-30] MEDS: predniSONE TAB* 5 MG PO SCH (10:26)
[2018-11-30] MEDS: predniSONE TAB* 1 MG PO SCH (10:26)
[2018-11-30] MEDS: Docusate CAP* 100 MG PO SCH ×2 (10:26→21:28)
[2018-11-30] MEDS: Vitamin THERAPEUTIC TAB PO SCH (10:28)
[2018-11-30] MEDS: traMADol TAB* 50 MG PO PRN (10:28)
[2018-11-30] MEDS: Magnesium Hydroxide LIQ* 30 ML UDC PO SCH ×2 (10:29→21:28)
[2018-11-30] MEDS: Cyclobenzaprine TAB* 10 MG PO PRN ×2 (14:53→21:29)
[2018-11-30] MEDS: oxyCODONE TAB* 5 MG TAB PO PRN (21:28)
[2018-12-01] MEDS: Cyclobenzaprine TAB* 10 MG PO PRN (04:24)
[2018-12-01 05:37] LABS: Hematocrit 33 % (35-47); Hemoglobin 10.8 g/dL (12.0-16.0); Mean Platelet Volume 7.9 fL (7.4-10.4); Platelet Count 407 10^3/uL (150-450)
[2018-12-01] MEDS: Acetaminophen TAB* 325 MG PO SCH ×2 (05:44→14:04)
[2018-12-01] MEDS: Docusate CAP* 100 MG PO SCH (08:22)
[2018-12-01] MEDS: predniSONE TAB* 1 MG PO SCH (08:22)
[2018-12-01] MEDS: predniSONE TAB* 5 MG PO SCH (08:22)
[2018-12-01] MEDS: Vitamin THERAPEUTIC TAB PO SCH (08:23)
[2018-12-01] MEDS: Magnesium Hydroxide LIQ* 30 ML UDC PO SCH (08:23)
[2018-12-01] MEDS: Apixaban* 2.5 MG TAB PO SCH (08:23)
[2018-12-01] MEDS: traMADol TAB* 50 MG PO PRN (08:39)
[2018-12-01 11:15] VITALS: BP 121/56
--- NOTE | 2018-12-01 12:04 | PN ---
Progress Note - Progress Note Date of Service: 12/01/18 SOAP: Subjective: []Patient seen at bedside with no complaints. She has been working with PT without issues. She feels weel. Pain well controlled on current meds. Pt had low BP yesterday that stabilized with bolus of NS. Denies CP, SOB, dizziness, lightheadedness, nausea. Objective: []Gen: Appears well, NAD, alert and oriented. RLE: Right knee dressing CDI no erythema, thigh is soft, DF/PF intact, DP2+, sensation intact to light touch distally Calves supple and nontender without erythema, edema or palpable cords. Assessment: [] POD 2 sp RTK Plan: []WBAT PT/OT eliquis 2.5 mg po BID x 30 days post op Plan for DC home today. Laboratory Last Values Hgb 10.8 g/dL (12.0-16.0) L 12/01/18 04:34 Hct 33 % (35-47) L 12/01/18 04:34 Plt Count 407 10^3/uL (150-450) 12/01/18 04:34 MPV 7.9 fL (7.4-10.4) 12/01/18 04:34 Sodium 138 mmol/L (135-145) 11/30/18 06:51 Potassium 4.9 mmol/L (3.5-5.0) 11/30/18 06:51 Chloride 105 mmol/L (101-111) 11/30/18 06:51 Carbon Dioxide 29 mmol/L (22-32) 11/30/18 06:51 Anion Gap 4 mmol/L (2-11) 11/30/18 06:51 BUN 13 mg/dL (6-24) 11/30/18 06:51 Creatinine 0.64 mg/dL (0.51-0.95) 11/30/18 06:51 Est GFR ( Amer) 110.1 (>60) 11/30/18 06:51 Est GFR (Non-Af Amer) 91.0 (>60) 11/30/18 06:51 BUN/Creatinine Ratio 20.3 (8-20) H 11/30/18 06:51 Glucose 118 mg/dL (70-100) H 11/30/18 06:51 Calcium 8.4 mg/dL (8.6-10.3) L 11/30/18 06:51 Vital Signs Temp Pulse Resp BP Pulse Ox 98.2 F 73 17 121/56 96 12/01/18 11:15 12/01/18 11:15 12/01/18 11:15 12/01/18 11:15 12/01/18 11:15
--- NOTE | 2018-12-01 13:07 | DS ---
Orthopedic Discharge Summary - Discharge Summary Date of Admission:11/29/18 Date of Discharge: [12/01/18] Date of Surgery: [11/29/18] Attending Orthopedic Provider: [Dr. Rodney] Pre-operative Diagnosis: [Right knee osteoarthritis] Operative Procedure: [Right total knee replacement] Disposition of Patient: [Home] Condition of Patient: [stable] History: CORETTA SANTOS is a 73 year old F with years of increasingly severe right knee pain. Patient has failed conservative management and has elected to undergo a right total knee replacement Hospital Course: CORETTA was admitted to [facility] 11/29/18. Patient underwent a right knee replacement without complication followed by a brief recovery in PACU and transfer to the Short Stay Surgical Unit in stable condition. Our hospitalist service, physical therapy and occupational therapy also participated in this patients care. Post-op day 1: patient was alert and in no acute distress. Dressing was clean, dry and intact. Operative extremity dorsiflexion and plantarflexion intact, sensation intact to light touch distally , DP2+. Post-op day two: dressing was changed, incision was clean, dry and intact. Patient was deemed to be medically and orthopedically stable for discharge. Physical therapy goals were met. Home Medications Medication Instructions Recorded Confirmed Type Cataplex C 1 cap PO TID 06/10/18 11/29/18 History Enzycore 1 tab PO QAM 06/10/18 11/29/18 History L.acidoph,Paracasei, B.lactis 1 each PO QAM 06/10/18 11/29/18 History [Probiotic] predniSONE TAB* [Deltasone 20 MG 7 mg PO QAM 06/10/18 11/29/18 History TAB*] Calcium Citrate [Calcitrate] 200 mg PO TID 11/09/18 11/29/18 History Acetaminophen 650 mg PO BID 11/21/18 11/29/18 History Cataplex D 1 tab PO TID 11/21/18 11/29/18 History Drenamin 1 tab PO TID 11/21/18 11/29/18 History Apixaban* [Eliquis*] 2.5 mg PO BID #60 tab 12/01/18 Rx oxyCODONE/Acetamin 5/325 MG* 2 tab PO Q4H PRN #70 tab MDD 10 12/01/18 Rx [Percocet 5/325 TAB*] Discharge Instructions following Orthopedic Surgery: Activity: * Weight Bearing as tolerated * Continue physical therapy and occupational therapy exercises as shown Wound care: * OK to shower on post-op day 3, no bathing, swimming, or submerging wound. * Use gentle soap, pat dry. Cover with gauze, GRACE wrap or tape. * Visiting home nurse to do wound checks. Call Orthopedic office for: * Increased drainage * Redness * Increased pain * Fever Go to ER with shortness of breath or chest pain. Diet: * Regular diet * Increase fluids and fiber to prevent constipation. * Continue to use stool softeners, call office if no bowel motion within 48 hours. Medications See Home Medication List in your packet for medications that you should take after discharge. DVT Prophylaxis: Eliquis Dosin.5 mg, 1 tab every 12 hours x 30 days. May increase bleeding tendency. Pain Control: Percocet Dosin/325 mg 1-2 tabs by mouth every 4-6 hours as needed for pain. Maximum of 10 tabs per day. * Hold for sedation. Wean off as soon as pain allows. Please note that Percocet contains Tylenol (acetaminophen). Maximum daily dose of Tylenol is 4000 mg from all sources. Antibiotics are required prior to any dental work. FOLLOW UP: Follow up with Within 10-14 days, call for appointment Please call our office with any questions or concerns ([phone])
[2018-12-01] MEDS ORDERED: Bisacodyl SUPP* 10 MG SUPP PR PRN (15:06)
== END 2018-12-01 15:40 | disposition home or self-care (01) | DRG 470 ==
LOC: AA 10:27 → SSU 17:31
PROVIDERS: ADMIT Orthopaedic Surgery Adult Reconstructive Orthopaedic Surgery; ATTEND Orthopaedic Surgery Adult Reconstructive Orthopaedic Surgery
PROC: 0SRC0J9 Replacement of Right Knee Joint with Synthetic Substitute, Cemented, Open Approach (ICD-10-PCS; principal; 2018-11-29 13:45)
DX: M17.11 Unilateral primary osteoarthritis, right knee (principal); M21.061 Valgus deformity, not elsewhere classified, right knee; M25.761 Osteophyte, right knee; M85.88 Other specified disorders of bone density and structure, other site; Z96.642 Presence of left artificial hip joint; Z82.49 Family history of ischemic heart disease and other diseases of the circulatory system; Z80.1 Family history of malignant neoplasm of trachea, bronchus and lung; Z87.891 Personal history of nicotine dependence
CPT/HCPCS: 36415; 80048; 85014; 85018; 85049; 88305; 88311; A9270-GY; C1776; G8978-GP-CL; G8979-GP-CI; J0690; J1100; J2250; J2795; J3010; J3490; J7512